=== PATIENT | female | born 1960 | race Caucasian/White ===

== ENCOUNTER 2016-10-05 12:31 | Emergency (ER) | payer SELFPAY ==
[2016-10-05 13:12] LABS: HEMATOCRIT 36.7 % (36.0-47.0); HEMOGLOBIN 12.2 g/dL (12.0-15.5); HGB HCT DIFFERENCE -0.1; MEAN CORPUSCULAR HEMOGLOBIN 29.3 pg (27.0-33.4); MEAN CORPUSCULAR HGB CONC 33.4 g/dL (32.0-36.0); MEAN CORPUSCULAR VOLUME 88 fl (80-97); RED BLOOD COUNT 4.18 10^6/uL (3.72-5.28); RED CELL DISTRIBUTION WIDTH 13.9 % (11.5-14.0); WHITE BLOOD COUNT 16.3 10^3/uL (4.0-10.5)
[2016-10-05] MEDS ORDERED: IPRATROPIUM/ALBUTEROL 0.5-2.5 MG/3 ML AMPUL NEB ONE ×3 (13:21)
[2016-10-05 13:31] LABS: BASOPHILS % (MANUAL) 1 % (0-2); EOSINOPHILS % (MANUAL) 5 % (0-6); LYMPHOCYTES % (MANUAL) 57 % (13-45); TOTAL CELLS COUNTED 100
--- NOTE | 2016-10-05 13:31 | ER Document Report ---
ED General - General Chief Complaint: Shortness Of Breath Stated Complaint: SHORTNESS OF BREATH Mode of Arrival: Ambulatory Information source: Patient Notes: 56-year-old female history of COPD who is stop smoking presents with complaints of wheezing. Patient is to mild shortness of breath, denies any productivity or fevers. Patient denies any other concerns, notes she's had multiple similar episodes in the past requiring duo nebs here and then discharge. Patient states she feels well otherwise TRAVEL OUTSIDE OF THE [place] IN LAST 30 DAYS: No - HPI Onset: Other - 3 days Onset/Duration: Persistent Quality of pain: No pain Severity: Mild Pain Level: Denies Associated symptoms: Nonproductive cough, Shortness of breath Exacerbated by: Denies Relieved by: Denies Similar symptoms previously: Yes Recently seen / treated by doctor: Yes - Related Data Allergies/Adverse Reactions: codeine Allergy (Verified 10/05/16 13:13) methylprednisolone sodium succinate [From Solu-Medrol] Adverse Reaction ( Verified 04/05/14 06:23) Increase Glucose Past Medical History - Social History Smoking Status: Former Smoker Cigarette use (# per day): No Chew tobacco use (# tins/day): No Smoking Education Provided: No Frequency of alcohol use: None Drug Abuse: None Family History: Reviewed & Not Pertinent - Past Medical History Cardiac Medical History: Reports: Hx Hypercholesterolemia, Hx Hypertension Denies: Hx Coronary Artery Disease, Hx Heart Attack Pulmonary Medical History: Reports: Hx Asthma, Hx Bronchitis, Hx COPD, Hx Pneumonia Neurological Medical History: Denies: Hx Cerebrovascular Accident, Hx Seizures Endocrine Medical History: Reports: Hx Diabetes Mellitus Type 2 Renal/ Medical History: Denies: Hx Peritoneal Dialysis Musculoskeltal Medical History: Reports Hx Arthritis Past Surgical History: Reports: Hx Appendectomy, Hx Hysterectomy, Hx Orthopedic Surgery - left knee repair. Denies: Hx Pacemaker - Immunizations Hx Diphtheria, Pertussis, Tetanus Vaccination: Yes Hx Pneumococcal Vaccination: 06/23/03 Review of Systems - Review of Systems Notes: REVIEW OF SYSTEMS: CONSTITUTIONAL : Denies fever, chills, or sweats. Denies recent illness. EENT: Denies eye, ear, throat, or mouth pain or symptoms. Denies nasal or sinus congestion or discharge. Denies throat, tongue, or mouth swelling or difficulty swallowing. CARDIOVASCULAR: Denies chest pain. Denies palpitations or racing or irregular heart beat. Denies ankle edema. RESPIRATORY: Admits to shortness of breath wheezing GASTROINTESTINAL: Denies abdominal pain or distention. Denies nausea, vomiting , or diarrhea. Denies blood in vomitus, stools, or per rectum. Denies black, tarry stools. Denies constipation. GENITOURINARY: Denies difficulty urinating, painful urination, burning, frequency, blood in urine, or discharge. FEMALE GENITOURINARY: Denies vaginal bleeding, heavy or abnormal periods, irregular periods. Denies vaginal discharge or odor. MUSCULOSKELETAL: Denies back or neck pain or stiffness. Denies joint pain or swelling. SKIN: Denies rash, lesions or sores. HEMATOLOGIC : Denies easy bruising or bleeding. LYMPHATIC: Denies swollen, enlarged glands. NEUROLOGICAL: Denies confusion or altered mental status. Denies passing out or loss of consciousness. Denies dizziness or lightheadedness. Denies headache. Denies weakness or paralysis or loss of use of either side. Denies problems with gait or speech. Denies sensory loss, numbness, or tingling. Denies seizures. PSYCHIATRIC: Denies anxiety or stress. Denies depression, suicidal ideation, or homicidal ideation. ALL OTHER SYSTEMS REVIEWED AND NEGATIVE. Dictation was performed using [employer] voice recognition software PHYSICAL EXAMINATION: GENERAL: Well-appearing, well-nourished and in no acute distress. HEAD: Atraumatic, normocephalic. EYES: Pupils equal round and reactive to light, extraocular movements intact, conjunctiva are normal. ENT: Nares patent, oropharynx clear without exudates. Moist mucous membranes. NECK: Normal range of motion, supple without lymphadenopathy LUNGS: Clear inspiratory breath sounds bilateral expiratory breath sounds noted HEART: Regular rate and rhythm without murmurs ABDOMEN: Soft, nontender, nondistended abdomen. No guarding, no rebound. No masses appreciated. Female : deferred Musculoskeletal: Normal range of motion, no pitting or edema. No cyanosis. NEUROLOGICAL: Cranial nerves grossly intact. Normal speech, normal gait. Normal sensory, motor exams PSYCH: Normal mood, normal affect. SKIN: Warm, Dry, normal turgor, no rashes or lesions noted. Physical Exam - Vital signs Vitals: Temp Pulse Resp BP Pulse Ox 98 F 95 20 118/69 97 10/05/16 12:39 10/05/16 12:39 10/05/16 12:39 10/05/16 12:39 10/05/16 12:39 Course - Re-evaluation Re-evalutation: 10/05/16 13:31 Patient is having mild COPD exacerbation otherwise well-appearing in no distress , I will give her some breathing treatments here x-rays pending otherwise patient looks well satting 100% on room air 10/05/16 14:34 Lab work notes mild white count elevation of the bed the patients in no distress looks well sounds much better after breathing treatments I will discharge her home with steroids and inhaler After performing a Medical Screening Examination, I estimate there is LOW risk for ACUTE CORONARY SYNDROME, RESPIRATORY FAILURE, SEPSIS OR MENINGITIS, thus I consider the discharge disposition reasonable. I have reevaluated this patient multiple times and no significant life threatening changes are noted. The patient and I have discussed the diagnosis and risks, and we agree with discharging home with close follow-up. We also discussed returning to the Emergency Department immediately if new or worsening symptoms occur. We have discussed the symptoms which are most concerning (e.g., changing or worsening pain, trouble swallowing or breathing, neck stiffness, fever) that necessitate immediate return. - Vital Signs Vital signs: Temp Pulse Resp BP Pulse Ox 98 F 95 24 H 118/69 96 10/05/16 12:39 10/05/16 12:39 10/05/16 13:05 10/05/16 12:39 10/05/16 13:05 - Laboratory Result Diagrams: 10/05/16 13:00 10/05/16 13:00 Laboratory results interpreted by me: 10/05/16 10/05/16 13:00 13:00 WBC 16.3 H Seg Neuts % (Manual) 32 L Lymphocytes % (Manual) 57 H Monocytes % (Manual) 2 L Abs Lymphs (Manual) 9.8 H Absolute Eos (Manual) 0.8 H Sodium 145.3 H Est GFR (Non-Af Amer) 58 L Glucose 170 H AST 43 H Creatine Kinase 1176 H - Diagnostic Test Radiology reviewed: Image reviewed, Reports reviewed Discharge - Discharge Clinical Impression: COPD exacerbation Condition: Stable Disposition: HOME, SELF-CARE Instructions: Chronic Obstructive Lung Disease ([facility]) Prescriptions: Albuterol Sulfate [Proair HFA Inhalation Aerosol 8.5 gm MDI] 2 puff IH Q4H PRN # 1 mdi PRN Reason: Prednisone [Deltasone 20 mg Tablet] 3 tab PO DAILY 5 Days Referrals: ELAINE JACK MD [Primary Care Provider] - Follow up tomorrow
[2016-10-05 13:32] LABS: RBC MORPHOLOGY COMMENT NORMO-CYTIC/CHROMIC
[2016-10-05 13:44] LABS: ALANINE AMINOTRANSFERASE 40 U/L (9-52); ALBUMIN 4.7 g/dL (3.5-5.0); ALKALINE PHOSPHATASE 66 U/L (38-126); ANION GAP 17 (5-19); ASPARTATE AMINO TRANSFERASE 43 U/L (14-36); BILIRUBIN,DIRECT 0.2 mg/dL (0.0-0.4); BILIRUBIN,TOTAL 0.4 mg/dL (0.2-1.3); BLOOD UREA NITROGEN 18 mg/dL (7-20); CALCIUM 9.7 mg/dL (8.4-10.2); CARBON DIOXIDE 24 mmol/L (22-30); CHLORIDE 104 mmol/L (98-107); CREATINE KINASE 1176 U/L (30-135); CREATININE RESULT 0.98 mg/dL (0.52-1.25); GLUCOSE 170 mg/dL (75-110); POTASSIUM 4.7 mmol/L (3.6-5.0); SODIUM 145.3 mmol/L (137-145); TOTAL PROTEIN 7.6 g/dL (6.3-8.2)
[2016-10-05 13:55] LABS: CREATINE KINASE MB 3.69 ng/mL (<4.55)
[2016-10-05 13:56] LABS: TROPONIN I < 0.012 ng/mL
[2016-10-05 14:52] VITALS: BP 99/81
[2016-10-05 15:09] LABS: APPEARANCE,URINE SLIGHTLY-CLOUDY; BILIRUBIN,URINE NEGATIVE (NEGATIVE); GLUCOSE, URINE NEGATIVE (NEGATIVE); KETONES,URINE NEGATIVE (NEGATIVE); LEUKOCYTE ESTERASE,URINE LARGE (NEGATIVE); NITRITE,URINE NEGATIVE (NEGATIVE); PROTEIN,URINE NEGATIVE (NEGATIVE); URINE SPECIFIC GRAVITY 1.025; UROBILINOGEN,URINE NEGATIVE mg/dL (<2.0)
--- NOTE | 2016-10-05 18:06 | EKG REPORT ---
SEVERITY:- BORDERLINE ECG - SINUS RHYTHM BORDERLINE LEFT AXIS DEVIATION BORDERLINE T ABNORMALITIES, ANTERIOR LEADS : Confirmed by: Zeb Esquivel MD 05-Oct-2016 18:05:36
== END 2016-10-05 14:52 | disposition home or self-care (01) ==
LOC: ER 12:31
DX: J44.1 Chronic obstructive pulmonary disease with (acute) exacerbation (principal); R06.02 Shortness of breath; R06.2 Wheezing; Z87.891 Personal history of nicotine dependence
CPT/HCPCS: 36415; 71010; 80053; 81001; 82550; 82553; 83880; 84484; 85025; 93005; 93010; 94640; 99285; J7620

== ENCOUNTER → 2017-02-28 | Outpatient (CLI) | payer BC ==
--- NOTE | 2017-02-28 16:43 | WOMENS IMAGING REPORT ---
EXAM DESCRIPTION: BILAT SCREENING MAMMO W/CAD COMPLETED DATE/TIME: 02/28/2017 8:28 am REASON FOR STUDY: SCREENING MAMMO Z12.31 ENCNTR SCREEN MAMMOGRAM FOR MALIGNANT NEOPLASM OF ANGEL COMPARISON: Multiple since 2007 TECHNIQUE: Standard craniocaudal and mediolateral oblique views of each breast recorded using digita l acquisition. LIMITATIONS: None. FINDINGS: Findings present which are benign by mammographic criteria. No suspicious masses, calcifi cations or architectural distortion. Pertinent benign findings: Multiple bilateral breast parenchymal benign calcifications. Benign left breast nodule 6 o'clock position. Read with the assistance of CAD. .[facility] - R2 Cenova Version 1.3 .[facility] Imaging - R2 Cenova Version 1.3 .[facility] - R2 Cenova Version 2.4 .[facility] - R2 Cenova Version 2.4 .[facility] - R2 Clinical Data Abstractor Version 9.2 Benign mammographic findings may include one or more of the following: Smooth masses, popcorn/rim/co arse calcifications, asymmetries, post-procedure changes, and lesions with long-standing stability. IMPRESSION: BENIGN MAMMOGRAPHIC FINDINGS. BIRADS 2 BREAST DENSITY: b. There are scattered areas of fibroglandular density. BIRAD: 2 BENIGN FINDING(S) RECOMMENDATION: ROUTINE SCREENING Please consider bilateral screening tomosynthesis in February 2018 COMMENT: The patient has been notified of the results by letter per SA requirements. Additional no tification policies are in place for contacting patient with suspicious or incomplete findings. Quality ID #[id number]: The [employer] recommends an annual screening mammogram for women aged 40 years or over. This facility utilizes a reminder system to ensure that all patients receive reminder letters, and/or direct phone calls for appointments. This includes reminders for routine scr eening mammograms, diagnostic mammograms, or other Breast Imaging Interventions when appropriate. Th is patient will be placed in the appropriate reminder system. The [employer] (ACR) has developed recommendations for screening MRI of the breast s in certain patient populations, to be used in conjunction with mammography. Breast MRI surveillanc e may be appropriate for women with more than 20% lifetime risk of developing breast cancer as deter mined by genetic testing, significant family history of the disease, or history of mantle radiation f or Hodgkins Disease. ACR Practice Guidelines 2008. TECHNICAL DOCUMENTATION: FINDING NUMBER: (1) ASSESSMENT: (1) JOB ID: [id number] [employer]- All Rights Reserved
== END ==
LOC: WI 08:01
PROVIDERS: ATTEND Family Medicine
DX: Z12.31 Encounter for screening mammogram for malignant neoplasm of breast (principal)
CPT/HCPCS: 77067; G0202

== ENCOUNTER 2017-05-23 16:17 | Emergency (ER) | payer BC ==
--- NOTE | 2017-05-23 18:48 | RADIOLOGY REPORT (SQ) ---
EXAM DESCRIPTION: CHEST PA/LAT COMPLETED DATE/TIME: 05/23/2017 6:39 pm REASON FOR STUDY: resp COMPARISON: 04/18/2017 EXAM PARAMETERS: NUMBER OF VIEWS: two views TECHNIQUE: Digital Frontal and Lateral radiographic views of the chest acquired. RADIATION DOSE: NA LIMITATIONS: none FINDINGS: LUNGS AND PLEURA: No opacities, masses or pneumothorax. No pleural effusion. MEDIASTINUM AND HILAR STRUCTURES: No masses or contour abnormalities. HEART AND VASCULAR STRUCTURES: Heart normal size. No evidence for failure. BONES: No acute findings. HARDWARE: None in the chest. OTHER: No other significant finding. IMPRESSION: NO SIGNIFICANT RADIOGRAPHIC FINDING IN THE CHEST. TECHNICAL DOCUMENTATION: JOB ID: [id number] [employer]- All Rights Reserved
[2017-05-23] MEDS ORDERED: IPRATROPIUM/ALBUTEROL 0.5-2.5 MG/3 ML AMPUL NEB ONE ×3 (19:34→20:53)
[2017-05-23] MEDS ORDERED: PREDNISONE 20 MG TABLET PO ONE (19:34)
[2017-05-23] MEDS ORDERED: DOXYCYCLINE HYCLATE 100 MG TABLET PO ONE (19:35)
--- NOTE | 2017-05-23 19:37 | ER Document Report ---
ED Respiratory Problem - General Chief Complaint: Cough Stated Complaint: DIFFICULTY BREATHING, FEVER, COUGH Time Seen by Provider: 05/23/17 19:10 Notes: Patient is a 56 year old female that comes to the ED for chief complaint of 2-3 days of worsening cough along with feeling chills and feverish. She did not take her temperature. Past medical history of COPD, former smoking, does not have home oxygen, uses home inhalers. She has been admitted for COPD but not intubated, she does have a history of pneumonia. She denies congestion, runny nose, sinus symptoms. She denies any other complaints. Other PMH includes diabetes, uses insulin. TRAVEL OUTSIDE OF THE [place] IN LAST 30 DAYS: No - Related Data Allergies/Adverse Reactions: codeine Allergy (Verified 05/23/17 16:18) methylprednisolone sodium succinate [From Solu-Medrol] Adverse Reaction ( Verified 05/23/17 16:18) Increase Glucose Past Medical History - General Information source: Patient - Social History Smoking Status: Never Smoker Chew tobacco use (# tins/day): No Frequency of alcohol use: None Drug Abuse: None Lives with: Family Family History: Reviewed & Not Pertinent Patient has suicidal ideation: No Patient has homicidal ideation: No - Past Medical History Cardiac Medical History: Reports: Hx Hypercholesterolemia, Hx Hypertension Denies: Hx Coronary Artery Disease, Hx Heart Attack Pulmonary Medical History: Reports: Hx Asthma, Hx Bronchitis, Hx COPD, Hx Pneumonia Neurological Medical History: Denies: Hx Cerebrovascular Accident, Hx Seizures Endocrine Medical History: Reports: Hx Diabetes Mellitus Type 2 Renal/ Medical History: Denies: Hx Peritoneal Dialysis Musculoskeltal Medical History: Reports Hx Arthritis Past Surgical History: Reports: Hx Appendectomy, Hx Hysterectomy, Hx Orthopedic Surgery - left knee repair. Denies: Hx Pacemaker - Immunizations Hx Diphtheria, Pertussis, Tetanus Vaccination: Yes Hx Pneumococcal Vaccination: 06/23/03 Review of Systems - Review of Systems Constitutional: See HPI EENT: No symptoms reported Cardiovascular: No symptoms reported Respiratory: See HPI Gastrointestinal: No symptoms reported Genitourinary: No symptoms reported Female Genitourinary: No symptoms reported Musculoskeletal: No symptoms reported Skin: No symptoms reported Hematologic/Lymphatic: No symptoms reported Neurological/Psychological: No symptoms reported Physical Exam - Vital signs Vitals: Temp Pulse Resp BP Pulse Ox 99.2 F 105 H 20 150/84 H 96 05/23/17 16:21 05/23/17 16:21 05/23/17 16:21 05/23/17 16:21 05/23/17 16:21 Interpretation: Normal - General General appearance: Appears well, Alert In distress: None - HEENT Head: Normocephalic, Atraumatic Eyes: Normal Pupils: PERRL - Respiratory Respiratory status: No respiratory distress. No: Respiratory distress, Labored , Tachypnea Chest status: Nontender Breath sounds: Decreased air movement, Nonproductive cough - occassional, Wheezing - Scattered expiratory wheezes Chest palpation: Normal - Cardiovascular Rhythm: Regular Heart sounds: Normal auscultation Murmur: No - Abdominal Inspection: Normal Distension: No distension Bowel sounds: Normal Tenderness: Nontender. No: Tender, Guarding Organomegaly: No organomegaly - Back Back: Normal, Nontender - Extremities General upper extremity: Normal inspection, Nontender, Normal color, Normal ROM , Normal temperature General lower extremity: Normal inspection, Nontender, Normal color, Normal ROM , Normal temperature, Normal weight bearing. No: Delia's sign - Neurological Neuro grossly intact: Yes Cognition: Normal Orientation: AAOx4 Kit Coma Scale Eye Opening: Spontaneous Kit Coma Scale Verbal: Oriented Kit Coma Scale Motor: Obeys Commands [place] Coma Scale Total: 15 Speech: Normal Motor strength normal: LUE, RUE, LLE, RLE Sensory: Normal - Psychological Associated symptoms: Normal affect, Normal mood - Skin Skin Temperature: Warm Skin Moisture: Dry Skin Color: Normal Course - Re-evaluation Re-evalutation: On initial examination patient has decreased breath sounds with expiratory wheezes throughout. Patient however does not have any tachypnea, she is actually very well-appearing. Patient states that she has been much worse many times previously in the past. She states she is trying to "nip it in the butt" . Chest x-ray is unremarkable. After multiple DuoNeb treatments patient's wheezing resolved. She is mildly tachycardic at about 100 on my reexamination. She states that she feels great now and she wants to go home. She declines additional workup including laboratory workup. Discussed recommendation of treating with prednisone, patient states that she wants minimal dosing because of elevated blood sugars, she states she does check her blood glucose and can adjust her insulin for it. She will be given a prednisone taper because of requests. Will treat with doxycycline because of history of pneumonia. Patient to follow-up closely with primary care. Patient agrees to return if she worsens in any way. - Vital Signs Vital signs: Temp Pulse Resp BP Pulse Ox 98.6 F 114 H 26 H 143/89 H 94 05/23/17 21:25 05/23/17 21:25 05/23/17 21:25 05/23/17 21:25 05/23/17 21:25 Discharge - Discharge Clinical Impression: COPD exacerbation, Cough, Shortness of breath Condition: Stable Disposition: HOME, SELF-CARE Additional Instructions: Symptoms and examination are most consistent with COPD exacerbation. Take medications as prescribed, take your albuterol inhaler as needed, follow-up closely with primary care. Return if you worsen in any way including difficulty breathing. Prescriptions: Doxycycline Hyclate 100 mg PO BID #14 capsule Prednisone [Deltasone 10 mg Tablet] 10 mg PO ASDIR PRN #21 tablet PRN Reason: Forms: Return to Work Referrals: MATTHIEU MEYERS DO [Primary Care Provider] - Follow up as needed
[2017-05-23 21:26] VITALS: BP 143/89
[2017-05-23] MEDS ORDERED: ALBUTEROL SULFATE HFA (90 MCG/PUFF) 8 GM MDI (1 MDI/ER DISP) IH ONE (21:48)
== END 2017-05-23 22:10 | disposition home or self-care (01) ==
LOC: ER 16:17
DX: J44.1 Chronic obstructive pulmonary disease with (acute) exacerbation (principal); R05 Cough; R06.02 Shortness of breath; I10 Essential (primary) hypertension; R68.83 Chills (without fever); E11.9 Type 2 diabetes mellitus without complications; Z79.4 Long term (current) use of insulin; Z79.899 Other long term (current) drug therapy; Z87.01 Personal history of pneumonia (recurrent); Z88.5 Allergy status to narcotic agent
CPT/HCPCS: 94640 ×2; 99283; 71020; J7512; J3490; J7620

== ENCOUNTER 2017-09-14 00:28 | Emergency (ER) | payer BC ==
[2017-09-14] MEDS ORDERED: IPRATROPIUM/ALBUTEROL 0.5-2.5 MG/3 ML AMPUL NEB ONE (00:40)
[2017-09-14] MEDS ORDERED: ALBUTEROL SULFATE 0.083% NEB 2.5 MG/3 ML AMPUL NEB ONE (00:40)
[2017-09-14] MEDS ORDERED: PREDNISONE 20 MG TABLET PO ONE (00:40)
--- NOTE | 2017-09-14 00:43 | ER Document Report ---
ED General - General Stated Complaint: SHORTNESS OF BREATH Time Seen by Provider: 09/14/17 00:40 Notes: Patient is a 57-year-old female with past medical history of COPD and hypertension who presents with 1 hour of progressively worsening shortness of breath. Patient states that she had a relatively rapid onset of progressively worsening wheezing and tightness. She states she tried her home nebulizer with minimal improvement of her symptoms. She states that she had recently been treated with a five-day course of a rapid taper of prednisone and that this had been secondary to increasing need for inhaler. However she states that today she felt much sicker than she had in the recent past. She denies any cough, sputum production, fever, chest pain, vomiting, or any additional symptoms that are worrisome to her. She has not recently seen a primary care doctor. She does not take any daily control medicines for her COPD. She states that she has had significant improvement of her symptoms after receiving nebulizer treatments by EMS. She has not noted that anything worsened or triggered her symptoms. TRAVEL OUTSIDE OF THE [place] IN LAST 30 DAYS: No - Related Data Allergies/Adverse Reactions: codeine Allergy (Verified 05/23/17 16:18) methylprednisolone sodium succinate [From Solu-Medrol] Adverse Reaction ( Verified 05/23/17 16:18) Increase Glucose Past Medical History - General Information source: Patient - Social History Smoking Status: Former Smoker Frequency of alcohol use: None Drug Abuse: None Lives with: Spouse/Significant other Family History: Reviewed & Not Pertinent - Past Medical History Cardiac Medical History: Reports: Hx Hypercholesterolemia, Hx Hypertension Denies: Hx Coronary Artery Disease, Hx Heart Attack Pulmonary Medical History: Reports: Hx Asthma, Hx Bronchitis, Hx COPD, Hx Pneumonia Neurological Medical History: Denies: Hx Cerebrovascular Accident, Hx Seizures Endocrine Medical History: Reports: Hx Diabetes Mellitus Type 2 Renal/ Medical History: Denies: Hx Peritoneal Dialysis Musculoskeltal Medical History: Reports Hx Arthritis Past Surgical History: Reports: Hx Appendectomy, Hx Hysterectomy, Hx Orthopedic Surgery - left knee repair. Denies: Hx Pacemaker - Immunizations Hx Diphtheria, Pertussis, Tetanus Vaccination: Yes Hx Pneumococcal Vaccination: 06/23/03 Review of Systems - Review of Systems Notes: Constitutional: Negative for fever. HENT: Negative for sore throat. Eyes: Negative for visual changes. Cardiovascular: Negative for chest pain. Respiratory: Positive for shortness of breath. Gastrointestinal: Negative for abdominal pain, vomiting or diarrhea. Genitourinary: Negative for dysuria. Musculoskeletal: Negative for back pain. Skin: Negative for rash. Neurological: Negative for headaches, weakness or numbness. 10 point ROS negative except as marked above and in HPI. Physical Exam - Vital signs Vitals: Pulse Ox 95 09/14/17 00:34 Interpretation: Tachycardic Notes: PHYSICAL EXAMINATION: GENERAL: Well-appearing, well-nourished and in no acute distress. HEAD: Atraumatic, normocephalic. EYES: Pupils equal round and reactive to light, extraocular movements intact, sclera anicteric, conjunctiva are normal. ENT: nares patent, oropharynx clear without exudates. Moist mucous membranes. NECK: Normal range of motion, supple without lymphadenopathy LUNGS: Mildly diminished air movement in all lung mcnamara. Scant end expiratory wheezing throughout. HEART: Regular tachycardia without murmurs ABDOMEN: Soft, nontender, normoactive bowel sounds. No guarding, no rebound. No masses appreciated. EXTREMITIES: Normal range of motion, no pitting or edema. No cyanosis. NEUROLOGICAL: No focal neurological deficits. Moves all extremities spontaneously and on command. PSYCH: Normal mood, normal affect. SKIN: Warm, Dry, normal turgor, no rashes or lesions noted. Course - Re-evaluation Re-evalutation: 09/14/17 00:41 Patient presents with a mild exacerbation of their baseline COPD. Mild wheezing at time of presentation but vitals do not show significant hypoxemia or tachypnea. No retractions. Patient did clinically improve after receiving nebulizers here in the emergency department. Chest x-ray without evidence of an acute pneumonia. Patient refused laboratory assessments. Patient able to ambulate without any respiratory distress. Based on patient's overall reassuring assessment, I believe they are stable for outpatient management with steroids and oral antibiotics. Patient has nebulizers at home. I do not suspect an acute alternative pathology at this time based on history and exam including acute pulmonary embolus, ACS, pneumothorax, or aortic dissection. At this time will discharge with return precautions and follow-up recommendations. Verbal discharge instructions given a the bedside and opportunity for questions given. Medication warnings reviewed. Patient is in agreement with this plan and has verbalized understanding of return precautions and the need for primary care follow-up in the next 24-72 hours. 09/14/17 01:22 - Vital Signs Vital signs: Temp Pulse Resp BP Pulse Ox 95 09/14/17 00:34 - Diagnostic Test Radiology reviewed: Image reviewed, Reports reviewed Radiology results interpreted by me: 09/14/17 01:22 Chest x-ray: No acute infiltrate or pneumothorax - EKG Interpretation by Me Additional EKG results interpreted by me: 09/14/17 01:23 Sinus tachycardia. Rate 109. No ST elevations or depressions. QTC 453. Discharge - Discharge Clinical Impression: COPD exacerbation Condition: Good Disposition: HOME, SELF-CARE Additional Instructions: You were seen for a COPD exacerbation. Your symptoms improved with treatment here in the emergency department. However, it is very important that you return to the emergency department immediately if you began to have worsening difficulty breathing that does not respond to your normal home nebulizers. You are also being sent home on a five-day course of steroids that you should start taking tomorrow. Please also follow closely with your primary care physician. You should eturn to emergency department if you develop fever greater than 101, persistent cough, persistent vomiting, pass out, or any other symptoms that are concerning to you. Prescriptions: Prednisone [Deltasone 20 mg Tablet] 3 tab PO DAILY 5 Days tablet Referrals: MATTHIEU MEYERS DO [Primary Care Provider] - Follow up in 3-5 days
--- NOTE | 2017-09-14 02:07 | RADIOLOGY REPORT (SQ) ---
EXAM DESCRIPTION: CHEST SINGLE VIEW CLINICAL HISTORY: sob COMPARISON: 05/23/2017 FINDINGS: Single frontal view of the chest. Tortuosity of the thoracic aorta. Cardiomegaly. Leads overlie the chest. Low lung volumes. No consolidation, pneumothorax, or pleural effusion. No displaced rib fractures identified. Upper abdominal soft tissues are unremarkable. IMPRESSION: 1. No acute pulmonary process identified. Cardiomegaly.
[2017-09-14 02:21] VITALS: BP 128/65
--- NOTE | 2017-09-14 16:20 | EKG REPORT ---
SEVERITY:- OTHERWISE NORMAL ECG - SINUS TACHYCARDIA : Confirmed by: Jordyn Watson 14-Sep-2017 16:19:52
== END 2017-09-14 02:41 | disposition home or self-care (01) ==
LOC: ER 00:28
DX: J44.1 Chronic obstructive pulmonary disease with (acute) exacerbation (principal); R00.0 Tachycardia, unspecified; I10 Essential (primary) hypertension; E11.9 Type 2 diabetes mellitus without complications; Z87.891 Personal history of nicotine dependence; Z88.5 Allergy status to narcotic agent; Z87.01 Personal history of pneumonia (recurrent)
CPT/HCPCS: 93005; 94640 ×2; 99285; 71045; 93010; J7512; J7620

== ENCOUNTER 2018-02-11 15:45 | Emergency (ER) | payer BC ==
--- NOTE | 2018-02-11 18:09 | ER Document Report ---
ED GI/ - General Chief Complaint: Nausea/Vomiting Stated Complaint: NAUSEA/VOMITING Time Seen by Provider: 02/11/18 18:09 Mode of Arrival: Ambulatory Information source: Patient TRAVEL OUTSIDE OF THE [place] IN LAST 30 DAYS: No - HPI Patient complains to provider of: Vomiting. No: Abdominal pain Onset: Other - 3 days. Timing/Duration: Gradual Quality of pain: No pain Severity at maximum: Moderate Severity in ED: Mild Pain Level: 2 Location: No: Chest pain Vaginal bleeding (Compared to normal period): None Associated symptoms: Nausea, Vomiting Exacerbated by: Denies Relieved by: Denies Similar symptoms previously: No Recently seen / treated by doctor: No - Related Data Allergies/Adverse Reactions: codeine Allergy (Verified 02/11/18 15:45) methylprednisolone sodium succinate [From Solu-Medrol] Adverse Reaction ( Verified 02/11/18 15:45) Increase Glucose Past Medical History - Social History Smoking Status: Former Smoker Chew tobacco use (# tins/day): No Frequency of alcohol use: None Drug Abuse: None Family History: Reviewed & Not Pertinent Patient has suicidal ideation: No Patient has homicidal ideation: No - Past Medical History Cardiac Medical History: Reports: Hx Hypercholesterolemia, Hx Hypertension Denies: Hx Coronary Artery Disease, Hx Heart Attack Pulmonary Medical History: Reports: Hx Asthma, Hx Bronchitis, Hx COPD, Hx Pneumonia Neurological Medical History: Denies: Hx Cerebrovascular Accident, Hx Seizures Endocrine Medical History: Reports: Hx Diabetes Mellitus Type 2 Renal/ Medical History: Denies: Hx Peritoneal Dialysis Musculoskeletal Medical History: Reports Hx Arthritis Past Surgical History: Reports: Hx Appendectomy, Hx Hysterectomy, Hx Orthopedic Surgery - left knee repair. Denies: Hx Pacemaker - Immunizations Hx Diphtheria, Pertussis, Tetanus Vaccination: Yes Hx Pneumococcal Vaccination: 06/23/03 Review of Systems - Review of Systems Constitutional: denies: Chills, Fever EENT: No symptoms reported Cardiovascular: No symptoms reported Respiratory: denies: Cough, Short of breath Gastrointestinal: Nausea, Vomiting, Poor appetite. denies: Abdominal pain, Diarrhea, Constipation Genitourinary: No symptoms reported Female Genitourinary: No symptoms reported Musculoskeletal: No symptoms reported Skin: No symptoms reported Hematologic/Lymphatic: No symptoms reported Neurological/Psychological: No symptoms reported -: Yes All other systems reviewed and negative Physical Exam - Vital signs Vitals: Temp Pulse Resp BP Pulse Ox 98.3 F 92 18 130/75 H 96 02/11/18 15:47 02/11/18 15:47 02/11/18 15:47 02/11/18 15:47 02/11/18 15:47 - General General appearance: Appears well, Alert In distress: None - HEENT Head: Normocephalic, Atraumatic Eyes: Normal Pupils: PERRL - Respiratory Respiratory status: No respiratory distress Chest status: Nontender Breath sounds: Normal Chest palpation: Normal - Cardiovascular Rhythm: Regular Heart sounds: Normal auscultation Murmur: No - Abdominal Inspection: Normal Distension: No distension Bowel sounds: Normal Tenderness: Nontender Organomegaly: No organomegaly - Back Back: Normal, Nontender - Extremities General upper extremity: Normal inspection, Nontender, Normal color, Normal ROM , Normal temperature General lower extremity: Normal inspection, Nontender, Normal color, Normal ROM , Normal temperature, Normal weight bearing. No: Delia's sign - Neurological Neuro grossly intact: Yes Cognition: Normal Orientation: AAOx4 [place] Coma Scale Eye Opening: Spontaneous [place] Coma Scale Verbal: Oriented [place] Coma Scale Motor: Obeys Commands [place] Coma Scale Total: 15 Speech: Normal Motor strength normal: LUE, RUE, LLE, RLE Sensory: Normal - Psychological Associated symptoms: Normal affect, Normal mood - Skin Skin Temperature: Warm Skin Moisture: Dry Skin Color: Normal Course - Re-evaluation Re-evalutation: 02/12/18 02:06 Patient tolerated p.o. in the ED and will be discharged home. She was advised to follow-up with her primary doctor tomorrow morning. - Vital Signs Vital signs: Temp Pulse Resp BP Pulse Ox 98.3 F 92 19 134/72 H 97 02/11/18 15:47 02/11/18 15:47 02/12/18 01:01 02/12/18 01:01 02/12/18 01:01 - Laboratory Result Diagrams: 02/11/18 17:24 02/11/18 17:24 Laboratory results interpreted by me: 02/11/18 02/11/18 02/11/18 17:24 17:24 18:41 WBC 17.1 H Hct 35.5 L Seg Neuts % (Manual) 33 L Lymphocytes % (Manual) 55 H Abs Lymphs (Manual) 9.7 H Absolute Eos (Manual) 0.7 H Chloride 95 L BUN 21 H Est GFR (Non-Af Amer) 51 L AST 49 H Creatine Kinase 1436 H Urine Ketones TRACE H Ur Leukocyte Esterase SMALL H - Diagnostic Test Radiology reviewed: Image reviewed, Reports reviewed - Transfer of Care Notes: 02/12/18 02:07 Nausea and vomiting Discharge - Discharge Clinical Impression: Nausea & vomiting Qualifiers: Vomiting type: unspecified Vomiting Intractability: non-intractable Qualified Code(s): R11.2 - Nausea with vomiting, unspecified Leukocytosis Qualifiers: Leukocytosis type: unspecified Qualified Code(s): D72.829 - Elevated white blood cell count, unspecified Disposition: HOME, SELF-CARE Instructions: Vomiting ([facility]) Additional Instructions: Please follow-up with her primary doctor tomorrow morning. Return to the emergency room if her condition worsens. Prescriptions: Levofloxacin [Levaquin 750 mg Tablet] 750 mg PO DAILY #5 tablet Ondansetron [Zofran Odt 4 mg Tablet] 1 tab PO Q4H PRN #20 tab.rapdis PRN Reason: For Nausea/Vomiting Forms: Return to Work Referrals: MATTHIEU MEYERS DO [Primary Care Provider] - Follow up as needed
[2018-02-11] MEDS ORDERED: NORMAL SALINE 1000 ML 1,000 ML IV ONE (18:13)
[2018-02-11] MEDS ORDERED: METOCLOPRAMIDE HCL INJ/PF 10 MG/2 ML SDV IV ONE (18:16)
[2018-02-11 18:47] LABS: HEMATOCRIT 35.5 % (36.0-47.0); HEMOGLOBIN 12.1 g/dL (12.0-15.5); MEAN CORPUSCULAR HEMOGLOBIN 29.1 pg (27.0-33.4); MEAN CORPUSCULAR HGB CONC 34.2 g/dL (32.0-36.0); MEAN CORPUSCULAR VOLUME 85 fl (80-97); PLATELET COUNT 233 10^3/uL (150-450); RED BLOOD COUNT 4.18 10^6/uL (3.72-5.28); RED CELL DISTRIBUTION WIDTH 13.8 % (11.5-14.0); WHITE BLOOD COUNT 17.1 10^3/uL (4.0-10.5)
[2018-02-11 19:03] LABS: APPEARANCE,URINE CLEAR; BILIRUBIN,URINE NEGATIVE (NEGATIVE); COLOR,URINE YELLOW; GLUCOSE, URINE NEGATIVE (NEGATIVE); KETONES,URINE TRACE mg/dL (NEGATIVE); LEUKOCYTE ESTERASE,URINE SMALL (NEGATIVE); NITRITE,URINE NEGATIVE (NEGATIVE); PROTEIN,URINE NEGATIVE (NEGATIVE); URINE SPECIFIC GRAVITY 1.013; UROBILINOGEN,URINE NEGATIVE mg/dL (<2.0)
[2018-02-11 19:05] LABS: ABSOLUTE LYMPHOCYTES# (MANUAL) 9.7 10^3/uL (0.5-4.7); ABSOLUTE MONOCYTES # (MANUAL) 0.9 10^3/uL (0.1-1.4); ABSOLUTE NEUTROPHILS# (MANUAL) 5.6 10^3/uL (1.7-8.2); ALANINE AMINOTRANSFERASE 38 U/L (9-52); ALBUMIN 4.4 g/dL (3.5-5.0); ALKALINE PHOSPHATASE 55 U/L (38-126); ANION GAP 18 (5-19); ASPARTATE AMINO TRANSFERASE 49 U/L (14-36); BASOPHILS % (MANUAL) 1 % (0-2); BILIRUBIN,DIRECT 0.3 mg/dL (0.0-0.4); BILIRUBIN,TOTAL 0.4 mg/dL (0.2-1.3); BLOOD UREA NITROGEN 21 mg/dL (7-20); CALCIUM 9.1 mg/dL (8.4-10.2); CARBON DIOXIDE 26 mmol/L (22-30); CHLORIDE 95 mmol/L (98-107); CREATINE KINASE 1436 U/L (30-135); EOSINOPHILS % (MANUAL) 4 % (0-6); GLUCOSE 91 mg/dL (75-110); LIPASE 93.7 U/L (23-300); LYMPHOCYTES % (MANUAL) 55 % (13-45); MONOCYTES % (MANUAL) 5 % (3-13); PLATELET COMMENT ADEQUATE; SEGMENTED NEUTROPHILS % (MAN) 33 % (42-78); SODIUM 138.8 mmol/L (137-145); TOTAL CELLS COUNTED 100; TOTAL PROTEIN 7.1 g/dL (6.3-8.2); TOXIC GRANULATION SLIGHT
[2018-02-11 19:09] LABS: VENOUS BLOOD BASE EXCESS 2.6 mmol/L; VENOUS BLOOD PCO2 52.6 mmHg (35-63); VENOUS BLOOD PH 7.36 (7.30-7.42)
[2018-02-11 19:20] LABS: CREATINE KINASE MB 3.97 ng/mL (<4.55)
[2018-02-11 19:27] LABS: TROPONIN I < 0.012 ng/mL
--- NOTE | 2018-02-11 19:30 | RADIOLOGY REPORT (SQ) ---
EXAM DESCRIPTION: CHEST SINGLE VIEW COMPLETED DATE/TIME: 02/11/2018 7:15 pm REASON FOR STUDY: cough COMPARISON: 09/14/2017 EXAM PARAMETERS: NUMBER OF VIEWS: One view. TECHNIQUE: Single frontal radiographic view of the chest acquired. RADIATION DOSE: NA LIMITATIONS: None. FINDINGS: LUNGS AND PLEURA: No opacities, masses or pneumothorax. No pleural effusion. MEDIASTINUM AND HILAR STRUCTURES: No masses. Contour normal. HEART AND VASCULAR STRUCTURES: Heart normal in size. Normal vasculature. BONES: No acute findings. HARDWARE: None in the chest. OTHER: No other significant finding. IMPRESSION: NO ACUTE RADIOGRAPHIC FINDING IN THE CHEST. TECHNICAL DOCUMENTATION: JOB ID: [id number] [employer]- All Rights Reserved Reading location - IP/workstation name: [email or web address]
--- NOTE | 2018-02-11 19:31 | RADIOLOGY REPORT (SQ) ---
EXAM DESCRIPTION: FOOT LEFT 2 VIEWS COMPLETED DATE/TIME: 02/11/2018 7:15 pm REASON FOR STUDY: pain COMPARISON: None. NUMBER OF VIEWS: Two views. TECHNIQUE: AP and lateral radiographic images acquired of the left foot. LIMITATIONS: None. FINDINGS: MINERALIZATION: Normal. BONES: Nondisplaced fracture of the base of the 5th proximal phalanx. Large plantar calcaneal spur. JOINTS: No effusions. SOFT TISSUES: No soft tissue swelling. No foreign body. OTHER: No other significant finding. IMPRESSION: Nondisplaced fracture of the 5th proximal phalanx. Calcaneal spur. TECHNICAL DOCUMENTATION: JOB ID: [id number] [employer]- All Rights Reserved Reading location - IP/workstation name: [email or web address]
--- NOTE | 2018-02-11 22:14 | EKG REPORT ---
SEVERITY:- NORMAL ECG - SINUS RHYTHM VPC : Confirmed by: Jordyn Watson 11-Feb-2018 22:14:14
[2018-02-11] MEDS ORDERED: LEVOFLOXACIN 750 MG/D5W RTU 750 MG/150 ML RTUPB IV ONE (22:27)
--- NOTE | 2018-02-11 22:36 | RADIOLOGY REPORT (SQ) ---
EXAM DESCRIPTION: CT ABD/PELVIS NO ORAL OR IV COMPLETED DATE/TIME: 02/11/2018 10:11 pm REASON FOR STUDY: Nausea and Vomiting COMPARISON: None. TECHNIQUE: CT scan of the abdomen and pelvis performed without intravenous or oral contrast. Images reviewed with lung, soft tissue, and bone windows. Reconstructed coronal and sagittal MPR images revi ewed. All images stored on PACS. All CT scanners at this facility use dose modulation, iterative reconstruction, and/or weight based d osing when appropriate to reduce radiation dose to as low as reasonably achievable (ALARA). [facility]: Dose Right [facility]: CareDose [facility]: Dose Right [facility]: Teradose 4D [facility]: [employer] RADIATION DOSE: CT Rad equipment meets quality standard of care and radiation dose reduction techniq ues were employed. CTDIvol: 16.9 mGy. DLP: 901 mGy-cm.mGy. LIMITATIONS: None. FINDINGS: LOWER CHEST: No significant findings. No nodules or infiltrates. NON-CONTRASTED LIVER, SPLEEN, ADRENALS: Evaluation limited by lack of IV contrast. No identified sign ificant masses. PANCREAS: No masses. No peripancreatic inflammatory changes. GALLBLADDER: No identified stones by CT criteria. No inflammatory changes to suggest cholecystitis. RIGHT KIDNEY AND URETER: No suspicious masses. Assessment limited by lack of IV contrast. No signif icant calcifications. No hydronephrosis or hydroureter. LEFT KIDNEY AND URETER: No suspicious masses. Assessment limited by lack of IV contrast. No signifi cant calcifications. No hydronephrosis or hydroureter. AORTA AND RETROPERITONEUM: No aneurysm. No retroperitoneal masses or adenopathy. BOWEL AND PERITONEAL CAVITY: No obvious masses or inflammatory changes. No free fluid. APPENDIX: Surgically absent. PELVIS, BLADDER, AND ABDOMINAL WALL:Uterus is absent. BONES: Dysplastic right hip. No acute osseous findings. OTHER: No other significant finding. IMPRESSION: 1. No acute findings in the abdomen or pelvis. 2. Right hip dysplasia. COMMENT: Quality ID # [id number]: Final reports with documentation of one or more dose reduction techniques (e.g., Automated exposure control, adjustment of the mA and/or kV according to patient size, use of iterative reconstruction technique) TECHNICAL DOCUMENTATION: JOB ID: [id number] [employer]- All Rights Reserved Reading location - IP/workstation name: [email or web address]
[2018-02-12 01:22] VITALS: BP 134/72
== END 2018-02-12 01:11 | disposition home or self-care (01) ==
LOC: ER 15:45
DX: R11.2 Nausea with vomiting, unspecified (principal); D72.829 Elevated white blood cell count, unspecified; R63.0 Anorexia; E78.00 Pure hypercholesterolemia, unspecified; I10 Essential (primary) hypertension; E11.9 Type 2 diabetes mellitus without complications; Z88.6 Allergy status to analgesic agent; Z87.891 Personal history of nicotine dependence; Z90.710 Acquired absence of both cervix and uterus
CPT/HCPCS: 93005; 99284; 96361; 96375; 96365; 36415; 82553; 82550; 83690; 85025; 80053; 81001; 84484; 82803; 71045; 73620; 74176; 93010; J2765; J7030; J1956

== ENCOUNTER → 2018-10-07 | Outpatient (CLI) | payer OTHER ==
[2018-10-07 10:20] LABS: HEMATOCRIT 36.7 % (36.0-47.0); HEMOGLOBIN 12.5 g/dL (12.0-15.5); MEAN CORPUSCULAR HEMOGLOBIN 29.5 pg (27.0-33.4); MEAN CORPUSCULAR HGB CONC 34.2 g/dL (32.0-36.0); MEAN CORPUSCULAR VOLUME 86 fl (80-97); PLATELET COUNT 208 10^3/uL (150-450); RED BLOOD COUNT 4.25 10^6/uL (3.72-5.28); RED CELL DISTRIBUTION WIDTH 14.1 % (11.5-14.0); WHITE BLOOD COUNT 18.4 10^3/uL (4.0-10.5)
[2018-10-07 10:33] LABS: ALANINE AMINOTRANSFERASE 37 U/L (9-52); ALKALINE PHOSPHATASE 71 U/L (38-126); ANION GAP 10 (5-19); ASPARTATE AMINO TRANSFERASE 26 U/L (14-36); BILIRUBIN,DIRECT 0.3 mg/dL (0.0-0.4); BILIRUBIN,TOTAL 0.3 mg/dL (0.2-1.3); BLOOD UREA NITROGEN 9 mg/dL (7-20); CALCIUM 9.5 mg/dL (8.4-10.2); CARBON DIOXIDE 27 mmol/L (22-30); CHLORIDE 101 mmol/L (98-107); CHOLESTEROL 189.19 mg/dL (0-200); GLUCOSE 195 mg/dL (75-110); SODIUM 137.6 mmol/L (137-145); TOTAL PROTEIN 6.6 g/dL (6.3-8.2); TRIGLYCERIDES 123 mg/dL (<150)
[2018-10-07 10:44] LABS: DIRECT LDL 140 mg/dL (<100)
[2018-10-07 11:06] LABS: ABSOLUTE LYMPHOCYTES# (MANUAL) 7.7 10^3/uL (0.5-4.7); ABSOLUTE MONOCYTES # (MANUAL) 0.4 10^3/uL (0.1-1.4); ABSOLUTE NEUTROPHILS# (MANUAL) 9.6 10^3/uL (1.7-8.2); BASOPHILS % (MANUAL) 0 % (0-2); EOSINOPHILS % (MANUAL) 4 % (0-6); LYMPHOCYTES % (MANUAL) 42 % (13-45); MONOCYTES % (MANUAL) 2 % (3-13); SEGMENTED NEUTROPHILS % (MAN) 52 % (42-78); SMUDGE CELLS PRESENT; TOTAL CELLS COUNTED 100
[2018-10-07 11:09] LABS: PLATELET COMMENT ADEQUATE
== END ==
LOC: OD 09:27
DX: Z00.00 Encounter for general adult medical examination without abnormal findings (principal)
CPT/HCPCS: 36415; 80053; 80061; 83036; 84443; 85025

== ENCOUNTER 2018-10-23 15:44 | Inpatient (IN) | payer SELFPAY ==
[2018-10-23] MEDS ORDERED: IPRATROPIUM/ALBUTEROL 0.5-2.5 MG/3 ML AMPUL NEB ONE ×2 (16:34→20:53)
[2018-10-23] MEDS ORDERED: METHYLPREDNISOLONE INJ 125 MG/2 ML SDV IV ONE (16:34)
--- NOTE | 2018-10-23 16:37 | ER Document Report ---
ED Medical Screen (RME) - General Chief Complaint: Breathing Difficulty Stated Complaint: DIFFICULTY BREATHING Time Seen by Provider: 10/23/18 16:27 [facility]: [facility] [Primary [facility] Provider] - Follow up as needed Mode of Arrival: Medic Information source: Patient TRAVEL OUTSIDE OF THE [place] IN LAST 30 DAYS: No - HPI Patient complains to provider of: SOB Notes: 10/23/18 16:35 Patient here with complaints of shortness of breath. Patient has a history of COPD. She is a non-smoker. Former smoker. States that she started feeling short of breath and gave her self a dose of her inhaler. She try to give herself a nebulizer treatment and started feeling more shortness of breath. EMS arrived and gave her 2 DuoNeb's. She refused steroids at that time. States she is feeling somewhat better at this time but still feels short of breath. No chest pain. No fever. No recent long trips or surgeries, leg pain or leg swelling, cancer, hormone use, history of DVT or PE. Exam Increased work of breathing, nontoxic-appearing. Tachypnea, tachycardia, expiratory expiratory wheezing throughout. Plan CBC, CMP, troponin, EKG, chest x-ray, DuoNeb, Solu-Medrol, O2 as needed. An initial examination was made on the patient as part of the triage process, and it was determined a more comprehensive evaluation was necessary. Initial labs were ordered and patient was transferred to another provider in the ED who assumed care and finished evaluation and plan. - Related Data Allergies/Adverse Reactions: codeine Allergy (Verified 02/11/18 15:45) methylprednisolone sodium succinate [From Solu-Medrol] Adverse Reaction (Verified 02/11/18 15:45) Increase Glucose Past Medical History - Social History Frequency of alcohol use: None Drug Abuse: None - Past Medical History Cardiac Medical History: Reports: Hx Hypercholesterolemia, Hx Hypertension Denies: Hx Coronary Artery Disease, Hx Heart Attack Pulmonary Medical History: Reports: Hx Asthma, Hx Bronchitis, Hx COPD, Hx Pneumonia Neurological Medical History: Denies: Hx Cerebrovascular Accident, Hx Seizures Endocrine Medical History: Reports: Hx Diabetes Mellitus Type 2 Renal/ Medical History: Denies: Hx Peritoneal Dialysis Musculoskeltal Medical History: Reports Hx Arthritis Past Surgical History: Reports: Hx Appendectomy, Hx Hysterectomy, Hx Orthopedic Surgery - left knee repair/right carpal tunnel. Denies: Hx Pacemaker - Immunizations Hx Diphtheria, Pertussis, Tetanus Vaccination: Yes History of Influenza Vaccine for 03/2017 - 08/2017 Season: No Physical Exam - Vital signs Vitals: Temp Pulse Resp BP Pulse Ox 98.3 F 124 H 24 H 137/88 H 90 L 10/23/18 16:02 10/23/18 16:02 10/23/18 16:02 10/23/18 16:02 10/23/18 16:02 Course - Vital Signs Vital signs: Temp Pulse Resp BP Pulse Ox 98.3 F 124 H 24 H 137/88 H 90 L 10/23/18 16:02 10/23/18 16:02 10/23/18 16:02 10/23/18 16:02 10/23/18 16:02 Doctor's Discharge - Discharge Referrals: [facility] [Primary Care Provider] - Follow up as needed
--- NOTE | 2018-10-23 16:58 | RADIOLOGY REPORT (SQ) ---
EXAM DESCRIPTION: CHEST 2 VIEWS COMPLETED DATE/TIME: 10/23/2018 4:44 pm REASON FOR STUDY: SOB, WHEEZING COMPARISON: 05/23/2017 two-view chest EXAM PARAMETERS: NUMBER OF VIEWS: two views TECHNIQUE: Digital Frontal and Lateral radiographic views of the chest acquired. RADIATION DOSE: NA LIMITATIONS: none FINDINGS: LUNGS AND PLEURA: No opacities, masses or pneumothorax. No pleural effusion. MEDIASTINUM AND HILAR STRUCTURES: No masses or contour abnormalities. HEART AND VASCULAR STRUCTURES: Heart normal size. No evidence for failure. BONES: No acute findings. HARDWARE: None in the chest. OTHER: No other significant finding. IMPRESSION: NO ACUTE RADIOGRAPHIC FINDING IN THE CHEST. TECHNICAL DOCUMENTATION: JOB ID: [id number] [employer]- All Rights Reserved Reading location - IP/workstation name: [email or web address]
[2018-10-23 17:26] LABS: ABSOLUTE EOSINOPHILS # (AUTO) 0.3 10^3/uL (0.0-0.6); ABSOLUTE MONOCYTES (AUTO) 0.4 10^3/uL (0.1-1.4); ABSOLUTE NEUT (AUTO) 8.6 10^3/uL (1.7-8.2); BASOPHILS % (AUTO) 0.3 % (0-2); EOSINOPHILS % (AUTO) 1.9 % (0-6); HEMATOCRIT 37.3 % (36.0-47.0); HEMOGLOBIN 12.4 g/dL (12.0-15.5); LYMPHOCYTES % (AUTO) 45.9 % (13-45); MEAN CORPUSCULAR HEMOGLOBIN 28.5 pg (27.0-33.4); MEAN CORPUSCULAR HGB CONC 33.1 g/dL (32.0-36.0); MEAN CORPUSCULAR VOLUME 86 fl (80-97); MONOCYTES % (AUTO) 2.4 % (3-13); PLATELET COUNT 207 10^3/uL (150-450); RED BLOOD COUNT 4.33 10^6/uL (3.72-5.28); RED CELL DISTRIBUTION WIDTH 13.5 % (11.5-14.0); SEGMENTED NEUTROPHILS % (AUTO) 49.5 % (42-78); TOTAL CELLS COUNTED % (AUTO) 100 %; WHITE BLOOD COUNT 17.4 10^3/uL (4.0-10.5)
[2018-10-23 17:45] LABS: ALANINE AMINOTRANSFERASE 54 U/L (9-52); ALBUMIN 4.1 g/dL (3.5-5.0); ALKALINE PHOSPHATASE 83 U/L (38-126); ANION GAP 17 (5-19); ASPARTATE AMINO TRANSFERASE 32 U/L (14-36); BILIRUBIN,DIRECT 0.2 mg/dL (0.0-0.4); BILIRUBIN,TOTAL 0.4 mg/dL (0.2-1.3); BLOOD UREA NITROGEN 13 mg/dL (7-20); CARBON DIOXIDE 25 mmol/L (22-30); CHLORIDE 97 mmol/L (98-107); GLUCOSE 313 mg/dL (75-110); POTASSIUM 4.1 mmol/L (3.6-5.0); SODIUM 138.7 mmol/L (137-145); TOTAL PROTEIN 6.7 g/dL (6.3-8.2)
[2018-10-23] MEDS ORDERED: ALBUTEROL SULFATE 0.083% NEB 2.5 MG/3 ML AMPUL NEB ONE ×2 (18:57→19:19)
[2018-10-23 19:12] LABS: CREATINE KINASE 83 U/L (30-135)
[2018-10-23 19:45] LABS: APPEARANCE,URINE CLOUDY; BILIRUBIN,URINE NEGATIVE (NEGATIVE); COLOR,URINE YELLOW; GLUCOSE, URINE 150 mg/dL (NEGATIVE); KETONES,URINE NEGATIVE (NEGATIVE); LEUKOCYTE ESTERASE,URINE LARGE (NEGATIVE); NITRITE,URINE NEGATIVE (NEGATIVE); PROTEIN,URINE NEGATIVE (NEGATIVE); URINE SPECIFIC GRAVITY 1.016; UROBILINOGEN,URINE NEGATIVE mg/dL (<2.0)
--- NOTE | 2018-10-23 20:47 | ER Document Report ---
Entered by GALA MILTON SCRIBE 10/23/18 [id number] Acting as scribe for:SUDHIR SOTO MD ED General - General Chief Complaint: Breathing Difficulty Stated Complaint: DIFFICULTY BREATHING Time Seen by Provider: 10/23/18 16:27 Primary Care Provider: [facility] [Primary Care Provider] - Follow up as needed Mode of Arrival: Ambulatory Information source: Patient Notes: Patient is a 58 year old female presenting to the emergency department complaining of difficultly breathing onset today. Patient states she began to have a cough and congestion approximately 1 week ago. She describes her cough as productive with intermittent white sputum. She states this afternoon after lunch, she began to have difficulty breathing. She states she used her rescue inhaler and a nebulizer treatment with no relief. Patient states she was last on prednisone 2 months ago but was instructed to stop use by PCP, Dr. Flores, due to the medication elevating her WBC and blood sugar. TRAVEL OUTSIDE OF THE [place] IN LAST 30 DAYS: No - Related Data Allergies/Adverse Reactions: codeine Allergy (Verified 02/11/18 15:45) methylprednisolone sodium succinate [From Solu-Medrol] Adverse Reaction (Verified 02/11/18 15:45) Increase Glucose Past Medical History - General Information source: Patient - Social History Smoking Status: Former Smoker Cigarette use (# per day): No Chew tobacco use (# tins/day): No Smoking Education Provided: No Frequency of alcohol use: None Drug Abuse: None Lives with: Family Family History: Reviewed & Not Pertinent Patient has suicidal ideation: No Patient has homicidal ideation: No - Past Medical History Cardiac Medical History: Reports: Hx Hypercholesterolemia, Hx Hypertension Pulmonary Medical History: Reports: Hx Asthma, Hx Bronchitis, Hx COPD, Hx Pneumonia Endocrine Medical History: Reports: Hx Diabetes Mellitus Type 2 Musculoskeletal Medical History: Reports Hx Arthritis Past Surgical History: Reports: Hx Appendectomy, Hx Hysterectomy, Hx Orthopedic Surgery - left knee repair/right carpal tunnel - Immunizations Hx Diphtheria, Pertussis, Tetanus Vaccination: Yes Hx Pneumococcal Vaccination: 06/23/03 Review of Systems - Review of Systems Constitutional: No symptoms reported EENT: No symptoms reported Cardiovascular: No symptoms reported Respiratory: See HPI, Short of breath Gastrointestinal: No symptoms reported Genitourinary: No symptoms reported Female Genitourinary: No symptoms reported Musculoskeletal: No symptoms reported Skin: No symptoms reported Hematologic/Lymphatic: No symptoms reported Neurological/Psychological: No symptoms reported -: Yes All other systems reviewed and negative Physical Exam - Vital signs Vitals: Temp Pulse Resp BP Pulse Ox 98.3 F 124 H 24 H 137/88 H 90 L 10/23/18 16:02 10/23/18 16:02 10/23/18 16:02 10/23/18 16:02 10/23/18 16:02 - Notes Notes: GENERAL: Alert, interacts well. No acute distress. HEAD: Normocephalic, atraumatic. EYES: Pupils equal, round, and reactive to light. Extraocular movements intact. ENT: Oral mucosa moist, tongue midline. NECK: Full range of motion. Supple. Trachea midline. LUNGS: Tachypneic. Diffuse inspiratory and expiratory wheezes. Prolonged expiratory phase. HEART: Regular rate and rhythm. No murmurs, gallops, or rubs. ABDOMEN: Soft, obese, non-tender. Non-distended. Bowel sounds present in all 4 quadrants. No guarding, rigidity, or rebound. EXTREMITIES: Moves all 4 extremities spontaneously. No edema. No cyanosis. NEUROLOGICAL: Alert and oriented x3. Normal speech. PSYCH: Normal affect, normal mood. SKIN: Warm, dry, normal turgor. No rashes or lesions noted. Course - Re-evaluation Re-evalutation: 10/23/18 22:21 The patient refused the magnesium sulfate timing it caused her face to flush. This time the patient is still a little tachypneic, dyspneic, with diffuse wheezes and prolonged expiratory phase. - Vital Signs Vital signs: Temp Pulse Resp BP Pulse Ox 97.8 F 124 H 27 H 150/110 H 92 10/23/18 22:31 10/23/18 16:02 10/23/18 21:01 10/23/18 21:01 10/23/18 21:01 - Laboratory Result Diagrams: 10/23/18 17:10 10/23/18 17:10 Laboratory results interpreted by me: 10/23/18 10/23/18 10/23/18 17:10 17:10 19:24 WBC 17.4 H Lymphocytes % 45.9 H Monocytes % 2.4 L Absolute Neutrophils 8.6 H Absolute Lymphocytes 8.0 H Chloride 97 L Glucose 313 H ALT 54 H Urine Glucose (UA) 150 H Ur Leukocyte Esterase LARGE H - Diagnostic Test Radiology reviewed: Image reviewed, Reports reviewed - Chest x-ray does not show any acute process - EKG Interpretation by Me EKG shows normal: Sinus rhythm, [place], Intervals, QRS Complexes. abnormal: ST-T Waves - Order line anterior T abnormalities Rate: Tachycardia - 103 [place]/QRS: Left axis deviation Discharge - Discharge Clinical Impression: Acute exacerbation of moderate persistent extrinsic asthma Urinary tract infection Qualifiers: Urinary tract infection type: site unspecified Hematuria presence: without hematuria Qualified Code(s): N39.0 - Urinary tract infection, site not specified Hypertension Qualifiers: Hypertension type: essential hypertension Qualified Code(s): I10 - Essential (primary) hypertension Diabetes Qualifiers: Diabetes mellitus type: type 2 Diabetes mellitus ocean transportation intermediary insulin use: unspecified ocean transportation intermediary insulin use status Diabetes mellitus complication status: without complication Qualified Code(s): E11.9 - Type 2 diabetes mellitus without complications Condition: Good Disposition: ADMITTED INPATIENT Admitting Provider: Betsy (Hospitalist) Unit Admitted: Medical Floor Referrals: [facility] [Primary Care Provider] - Follow up as needed Scribe Attestation: 10/23/18 20:56 I personally performed the services described in the documentation, reviewed and edited the documentation which was dictated to the scribe in my presence, and it accurately records my words and actions. I personally performed the services described in the documentation, reviewed and edited the documentation which was dictated to the scribe in my presence, and it accurately records my words and actions.
[2018-10-23] MEDS: MAGNESIUM SULFATE/D5W 1 GM/100 ML RTUPB IV SCH ×2 (21:19→21:33)
[2018-10-23] MEDS ORDERED: LEVOFLOXACIN 750 MG/D5W RTU 750 MG/150 ML RTUPB IV ONE (22:28)
[2018-10-23] MEDS: IBUPROFEN 600 MG TABLET PO PRN (23:43)
[2018-10-24] MEDS ORDERED: MAG HYDROX/AL HYDROX/SIMETH SUSP 30 ML UDCUP PO PRN (00:47)
[2018-10-24] MEDS ORDERED: MAGNESIUM HYDROXIDE SUSP 30 ML UDCUP PO PRN (00:47)
[2018-10-24] MEDS ORDERED: TEMAZEPAM 15 MG CAPSULE PO PRN (00:47)
[2018-10-24] MEDS ORDERED: NALBUPHINE HCL INJ 10 MG/1 ML AMPULE IV PRN (00:53)
[2018-10-24] MEDS ORDERED: ACETAMINOPHEN 325 MG TABLET PO PRN (00:53)
[2018-10-24] MEDS ORDERED: HYDRALAZINE HCL INJ/PF 20 MG/1 ML SDV IV PRN (00:53)
[2018-10-24] MEDS ORDERED: DEXTROSE 40% GEL 15 GM TUBE PO PRN ×2 (00:56)
[2018-10-24] MEDS ORDERED: DEXTROSE 50%-WATER 25 GM/50 ML DISP.SYRIN IV PRN ×2 (00:56)
[2018-10-24] MEDS ORDERED: GLUCAGON,HUMAN RECOMB 1 MG INJ IM PRN (00:56)
--- NOTE | 2018-10-24 01:24 | PDOC H&P ---
History of Present Illness Admission Date/PCP: 10/23/18 22:59 [facility] Patient complains of: Dyspnea History of Present Illness: EDWARDO PATRICK is a 58 year old female who presented to the emergency room with a one-week history of dyspnea. She admits mild dyspnea with an associated cough productive of moderate amounts of thick tenacious purulent yellow sputum beginning 1 week ago but suddenly worsening today after an outing to eat lunch with her daughter she suddenly developed markedly increased dyspnea and could not "catch her breath" she tried using her home nebulizer as well as handheld inhalers with no relief and subsequently presented to the emergency room with severe dyspnea. She admits having prior similar episodes with other asthma/COPD attacks. She has not identified any aggravating or ameliorating factors for her sudden worsening dyspnea today. In the emergency room she was found to be significantly dyspneic though not hypoxic. She had significant work of breathing but did not wish to use a BiPAP or CPAP mask unless absolutely necessary. She was treated with multiple nebulizers and intravenous steroids and did show some mild improvement but continued to be significantly dyspneic and unable to tolerate any activity due to her dyspnea. She was subsequently admitted to hospital for further evaluation and treatment. Past Medical History Cardiac Medical History: Reports: Hyperlipidema, Hypertension Denies: Coronary Artery Disease, Myocardial Infarction Pulmonary Medical History: Reports: Asthma, Bronchitis, Chronic Obstructive Pulmonary Disease (COPD), Pneumonia EENT Medical History: Reports: Eyes - Prescription eyeglasses Denies: Cataracts, Ears - Hearing aids Neurological Medical History: Denies: Hemorrhagic CVA, Ischemic CVA, Seizures Endocrine Medical History: Reports: Diabetes Mellitus Type 2, Obesity Denies: Diabetes Mellitus Type 1, Hyperthyroidism, Hypothyroidism Renal/ Medical History: Denies: Chronic Kidney Disease, Nephrolithiasis Malignancy Medical History: Reports: None GI Medical History: Denies: Cirrhosis, Hepatitis Musculoskeltal Medical History: Reports: Arthritis Denies: Gout Skin Medical History: Denies: Eczema, Psoriasis Psychiatric Medical History: Reports: Tobacco Dependency Denies: Alcohol Dependency, Substance Abuse Traumatic Medical History: Reports: None Hematology: Denies: Anemia, Bleeding Tendencies Infectious Medical History: Reports: None Past Surgical History Past Surgical History: Reports: Appendectomy, Hysterectomy, Orthopedic Surgery - left knee repair/right carpal tunnel Social History Information Source: Patient Lives with: Family Smoking Status: Former Smoker Frequency of Alcohol Use: None Hx Recreational Drug Use: No Drugs: None Hx Prescription Drug Abuse: No - Advance Directive Resuscitation Status: Full Code Surrogate healthcare decision maker:: Her daughter Kathy Family History Family History: CAD, COPD - Asthma and COPD, DM, Hyperlipidemia, Hypertension, Other - CHF. denies: Malignancy Parental Family History Reviewed: Yes Children Family History Reviewed: No Sibling(s) Family History Reviewed.: Yes Medication/Allergy Home Medications: Albuterol Sulfate [Proair HFA] 1 puff IH Q4HP PRN 04/18/17 Insulin Glargine,Hum.rec.anlog [Basaglar Kwikpen U-100] 36 units SQ QHS 04/18/17 Lisinopril/Hydrochlorothiazide [Zestoretic 20-25 mg Tablet] 1 tab PO DAILY 04/18/17 Metformin HCl [Glucophage 500 mg Tablet] 500 mg PO BID 04/18/17 Simvastatin [Zocor 20 mg Tablet] 20 mg PO QHS 04/18/17 Azithromycin 250 mg PO DAILY 4 Days #4 tablet 04/20/17 Prednisone [Deltasone 20 mg Tablet] 10 mg PO BID 7 Days #14 tablet 04/20/17 Doxycycline Hyclate 100 mg PO BID #14 capsule 05/23/17 Prednisone [Deltasone 10 mg Tablet] 10 mg PO ASDIR PRN #21 tablet 05/23/17 Prednisone [Deltasone 20 mg Tablet] 3 tab PO DAILY 5 Days tablet 09/14/17 Levofloxacin [Levaquin 750 mg Tablet] 750 mg PO DAILY #5 tablet 02/12/18 Ondansetron [Zofran Odt 4 mg Tablet] 1 tab PO Q4H PRN #20 tab.rapdis 02/12/18 Allergies/Adverse Reactions: codeine Allergy (Verified 02/11/18 15:45) methylprednisolone sodium succinate [From Solu-Medrol] Adverse Reaction (Verified 02/11/18 15:45) Increase Glucose Review of Systems Constitutional: ABSENT: chills, fever(s) Eyes: ABSENT: visual disturbances, other - Eye pain Ears: ABSENT: hearing changes, other - Ear pain Nose, Mouth, and Throat: ABSENT: mouth pain, sore throat Cardiovascular: PRESENT: as per HPI, dyspnea on exertion. ABSENT: chest pain, edema, orthropnea, palpitations Respiratory: PRESENT: as per HPI, cough, dyspnea, sputum Gastrointestinal: ABSENT: abdominal pain, constipation, diarrhea, nausea, vomiting Genitourinary: ABSENT: dysuria, hematuria Musculoskeletal: ABSENT: back pain, joint swelling, muscle weakness Integumentary: ABSENT: pruritus, rash Neurological: ABSENT: confusion, convulsions, focal weakness, memory loss, syncope Psychiatric: ABSENT: anxiety, depression Endocrine: ABSENT: cold intolerance, heat intolerance Hematologic/Lymphatic: ABSENT: easy bleeding, easy bruising Physical Exam Vital Signs: Temp Pulse Resp BP Pulse Ox 97.4 F 117 H 20 146/59 H 97 10/24/18 00:50 10/24/18 00:50 10/24/18 00:50 10/24/18 00:50 10/24/18 00:50 Intake & Output 10/22/18 10/23/18 10/24/18 23:59 23:59 23:59 Intake Total 18 150 Balance 18 150 Weight 98.6 kg 100.4 kg General appearance: PRESENT: cooperative, mild distress - Due to increased work of breathing, obese Head exam: PRESENT: atraumatic, normocephalic Eye exam: ABSENT: conjunctival injection, scleral icterus Ear exam: PRESENT: normal external ear exam. ABSENT: bleeding, drainage Mouth exam: PRESENT: dry mucosa, neck supple Neck exam: ABSENT: thyromegaly, tracheal deviation Respiratory exam: PRESENT: accessory muscle use - Moderate use of accessory muscles of breathing with tripoding, decreased breath sounds - Very poor air movement throughout the chest with diminished breath sounds in all mcnamara, prolonged expiratory phas - Moderate to severely prolonged expiratory phase, retraction - Mild to moderate subcostal subclavicular retractions bilaterally, symmetrical, tachypnea, wheezes - High-pitched end expiratory wheezes consistent with very poor air movement Cardiovascular exam: PRESENT: RRR, tachycardia. ABSENT: clicks, gallop, rubs Pulses: PRESENT: normal radial pulses, normal dorsalis pedis pul Vascular exam: PRESENT: normal capillary refill. ABSENT: pallor GI/Abdominal exam: PRESENT: normal bowel sounds, soft. ABSENT: tenderness Rectal exam: PRESENT: deferred Extremities exam: ABSENT: joint swelling, pedal edema Musculoskeletal exam: ABSENT: deformity, dislocation Neurological exam: PRESENT: alert, oriented to person, oriented to place, oriented to time, oriented to situation, CN II-XII grossly intact. ABSENT: motor sensory deficit Psychiatric exam: PRESENT: appropriate affect, normal mood Skin exam: PRESENT: dry, intact, warm. ABSENT: jaundice, rash, urticaria Results Laboratory Results: 10/23/18 17:10 10/23/18 17:10 10/23/18 10/23/18 10/23/18 17:10 17:10 19:24 WBC 17.4 H RBC 4.33 Hgb 12.4 Hct 37.3 MCV 86 MCH 28.5 MCHC 33.1 RDW 13.5 Plt Count 207 Seg Neutrophils % 49.5 Lymphocytes % 45.9 H Monocytes % 2.4 L Eosinophils % 1.9 Basophils % 0.3 Absolute Neutrophils 8.6 H Absolute Lymphocytes 8.0 H Absolute Monocytes 0.4 Absolute Eosinophils 0.3 Absolute Basophils 0.0 Sodium 138.7 Potassium 4.1 Chloride 97 L Carbon Dioxide 25 Anion Gap 17 BUN 13 Creatinine 0.89 Est GFR ( Amer) > 60 Est GFR (Non-Af Amer) > 60 Glucose 313 H Calcium 9.0 Total Bilirubin 0.4 AST 32 ALT 54 H Alkaline Phosphatase 83 Total Protein 6.7 Albumin 4.1 Urine Color YELLOW Urine Appearance CLOUDY Urine pH 5.0 Ur Specific [place] 1.016 Urine Protein NEGATIVE Urine Glucose (UA) 150 H Urine Ketones NEGATIVE Urine Blood NEGATIVE Urine Nitrite NEGATIVE Ur Leukocyte Esterase LARGE H Urine WBC (Auto) 35 Urine RBC (Auto) 4 10/23/18 10/23/18 17:10 17:10 Creatine Kinase 83 Troponin I 0.031 Impressions: Chest X-Ray 10/23/18 16:34 IMPRESSION: NO ACUTE RADIOGRAPHIC FINDING IN THE CHEST. Assessment and Plan - Diagnosis (1) Acute exacerbation of chronic obstructive pulmonary disease (COPD) Is this a current diagnosis for this admission?: Yes Plan: Patient be treated with an aggressive pulmonary toilet utilizing nebulized Xopenex, Pulmicort and Atrovent. She will be treated with IV Solu-Medrol and she will receive supplemental oxygen if required to maintain an O2 sat greater than 90% but less than 94%. Additionally she is noted to have significant work of breathing and she will have available BiPAP for as needed use utilizing room air with pressures of 12/6. Her O2 sat will be monitored constantly and venous blood gases will be obtained on a daily basis. Additionally she will receive Levaquin 750 mg p.o. daily on empiric basis for a total of 4 doses. Any pain associated with her acute exacerbation of COPD will be treated with Nubain 10 mg IV every 3 hours as needed. (2) Hypertension Qualifiers: Hypertension type: essential hypertension Qualified Code(s): I10 - Essential (primary) hypertension Is this a current diagnosis for this admission?: Yes Plan: Patient will continue with her current antihypertensive regiment. Her medications will be adjusted as necessary for formulary purposes. She will be followed closely throughout her hospital course with frequent vital sign assessments. Appropriate changes will be made only if necessary. Her CBC, metabolic profile and magnesium will be followed daily. She will be on monitored status in IM. (3) Hyperlipidemia Qualifiers: Hyperlipidemia type: unspecified Qualified Code(s): E78.5 - Hyperlipidemia, unspecified Is this a current diagnosis for this admission?: Yes Plan: Patient will have her current statin therapy help as it is been causing her a good deal of muscle pain in her primary care physician had recommended discontinuing it. A lipid profile will be obtained and initiation of Pravachol therapy or other appropriate agent will be initiated if required. (4) Diabetes mellitus type 2 in obese Is this a current diagnosis for this admission?: Yes Plan: Patient will be continued on her current diabetic regiment with a diabetic diet and she will also have AC and at bedtime blood sugars performed with sliding scale insulin to cover hyperglycemic events which may occur due to her steroid therapy. Hemoglobin A1c will be obtained to assess the efficacy of her current therapy. - Time Time Spent with patient: 25-34 minutes Medications reviewed and adjusted accordingly: Yes Anticipated discharge: Home - Inpatient Certification Based on my medical assessment, after consideration of the patient's comorbidities, presenting symptoms, or acuity I expect that the services needed warrant INPATIENT care.: Yes I certify that my determination is in accordance with my understanding of Medicare's requirements for reasonable and necessary INPATIENT services [42 CFR 412.3e].: Yes Medical Necessity: Significant Comorbidiites Make Outpatient Treatment Too Risky, Need Close Monitoring Due to Risk of Patient Decompensation, Need For Continuous Telemetry Monitoring, Need for Nebulizer Therapy and Monitoring of Response, Risk of Complication if Not Cared For in Hospital
[2018-10-24] MEDS ORDERED: INSULIN REG, HUMAN 100 UNIT/ML 3 ML VIAL (PYX) SUBCUT ONE (01:30)
[2018-10-24] MEDS ORDERED: LEVOFLOXACIN 750 MG TABLET PO ONE (01:30)
[2018-10-24] MEDS ORDERED: LEVALBUTEROL HCL NEB 1.25 MG/3 ML AMPUL NEB ONE (01:30)
[2018-10-24] MEDS ORDERED: METHYLPREDNISOLONE INJ 40 MG/1 ML SDV IV ONE (01:30)
[2018-10-24] MEDS: LEVALBUTEROL HCL NEB 0.63 MG/3 ML AMPUL NEB PRN ×2 (02:19→13:29)
[2018-10-24] MEDS ORDERED: RINGERS SOLUTION,LACTATED 1,000 ML IV PRN (03:03)
[2018-10-24] MEDS ORDERED: LORAZEPAM INJ 2 MG/1 ML VIAL IV PRN (04:01)
[2018-10-24] MEDS: HEPARIN SOD (PORCINE) 5,000 UNIT/ML 1 ML SYRINGE SUBCUT SCH ×3 (06:31→21:18)
[2018-10-24 07:04] LABS: VENOUS BLOOD BASE EXCESS -2.7 mmol/L; VENOUS BLOOD HCO3 22.5 mmol/L (20-32); VENOUS BLOOD PCO2 40.7 mmHg (35-63); VENOUS BLOOD PH 7.36 (7.30-7.42)
[2018-10-24] MEDS: BUDESONIDE NEB 0.5 MG/2 ML AMPUL NEB SCH ×2 (07:31→19:51)
[2018-10-24] MEDS: LEVALBUTEROL HCL NEB 1.25 MG/3 ML AMPUL NEB SCH ×2 (07:31→15:31)
[2018-10-24] MEDS: METHYLPREDNISOLONE INJ 40 MG/1 ML SDV IV SCH ×3 (08:46→21:18)
[2018-10-24] MEDS: INSULIN REG, HUMAN 100 UNIT/ML 3 ML VIAL (PYX) SUBCUT SCH ×4 (08:47→21:32)
[2018-10-24] MEDS: HYDROCHLOROTHIAZIDE 12.5 MG TABLET PO SCH (09:59)
[2018-10-24] MEDS: FAMOTIDINE 20 MG TABLET PO SCH ×2 (09:59→21:19)
[2018-10-24] MEDS: DOCUSATE SODIUM 100 MG CAPSULE PO SCH ×2 (10:00→17:03)
[2018-10-24] MEDS: METFORMIN HCL 500 MG TABLET PO SCH ×2 (10:00→17:02)
[2018-10-24] MEDS: LISINOPRIL 10 MG TABLET PO SCH (10:00)
[2018-10-24] MEDS: INSULIN GLARGINE,HUM.REC.ANLOG 1,000 UNIT/10 ML VIAL SUBCUT SCH (10:04)
[2018-10-24] MEDS: IBUPROFEN 600 MG TABLET PO PRN (10:13)
--- NOTE | 2018-10-24 11:13 | EKG REPORT ---
SEVERITY:- BORDERLINE ECG - SINUS TACHYCARDIA BORDERLINE LEFT AXIS DEVIATION BORDERLINE T ABNORMALITIES, ANTERIOR LEADS : Confirmed by: Jordyn Watson 24-Oct-2018 11:12:18
--- NOTE | 2018-10-24 16:51 | PDOC PROGRESS REPORT ---
Subjective Progress Note for:: 10/24/18 Subjective:: No adverse events overnight. No new complaints. Vital signs been stable. Eating and drinking without difficulty. Breathing well at rest but she still gets short of breath when she gets out of bed to go to the bathroom. Reason For Visit: ACUTE EXACERBATION OF COPD Physical Exam Vital Signs: Temp Pulse Resp BP Pulse Ox 97.8 F 117 H 22 H 157/82 H 93 10/24/18 15:30 10/24/18 15:32 10/24/18 15:32 10/24/18 15:30 10/24/18 15:32 Intake & Output 10/23/18 10/24/18 10/25/18 06:59 06:59 06:59 Intake Total 168 1706 Balance 168 1706 Weight 100.2 kg General appearance: PRESENT: no acute distress, cooperative, disheveled, morbidly obese Respiratory exam: PRESENT: prolonged expiratory phas, symmetrical, unlabored, wheezes. ABSENT: accessory muscle use, crackles, rhonchi, tachypnea Cardiovascular exam: PRESENT: RRR, +S1, +S2 Pulses: PRESENT: normal carotid pulses Vascular exam: PRESENT: normal capillary refill GI/Abdominal exam: PRESENT: normal bowel sounds, soft. ABSENT: distended, guarding, rebound, tenderness Extremities exam: ABSENT: clubbing, pedal edema Musculoskeletal exam: PRESENT: normal inspection. ABSENT: deformity Neurological exam: PRESENT: alert, awake, oriented to person, oriented to place, oriented to time, oriented to situation Psychiatric exam: PRESENT: flat affect Skin exam: PRESENT: dry, pallor, warm Results Laboratory Results: 10/23/18 17:10 10/23/18 17:10 10/23/18 10/23/18 10/23/18 17:10 17:10 19:24 WBC 17.4 H RBC 4.33 Hgb 12.4 Hct 37.3 MCV 86 MCH 28.5 MCHC 33.1 RDW 13.5 Plt Count 207 Seg Neutrophils % 49.5 Lymphocytes % 45.9 H Monocytes % 2.4 L Eosinophils % 1.9 Basophils % 0.3 Absolute Neutrophils 8.6 H Absolute Lymphocytes 8.0 H Absolute Monocytes 0.4 Absolute Eosinophils 0.3 Absolute Basophils 0.0 VBG pH VBG pCO2 VBG HCO3 VBG Base Excess Sodium 138.7 Potassium 4.1 Chloride 97 L Carbon Dioxide 25 Anion Gap 17 BUN 13 Creatinine 0.89 Est GFR ( Amer) > 60 Est GFR (Non-Af Amer) > 60 Glucose 313 H Calcium 9.0 Total Bilirubin 0.4 AST 32 ALT 54 H Alkaline Phosphatase 83 Total Protein 6.7 Albumin 4.1 Urine Color YELLOW Urine Appearance CLOUDY Urine pH 5.0 Ur Specific [place] 1.016 Urine Protein NEGATIVE Urine Glucose (UA) 150 H Urine Ketones NEGATIVE Urine Blood NEGATIVE Urine Nitrite NEGATIVE Ur Leukocyte Esterase LARGE H Urine WBC (Auto) 35 Urine RBC (Auto) 4 10/24/18 06:55 WBC RBC Hgb Hct MCV MCH MCHC RDW Plt Count Seg Neutrophils % Lymphocytes % Monocytes % Eosinophils % Basophils % Absolute Neutrophils Absolute Lymphocytes Absolute Monocytes Absolute Eosinophils Absolute Basophils VBG pH 7.36 VBG pCO2 40.7 VBG HCO3 22.5 VBG Base Excess -2.7 Sodium Potassium Chloride Carbon Dioxide Anion Gap BUN Creatinine Est GFR ( Amer) Est GFR (Non-Af Amer) Glucose Calcium Total Bilirubin AST ALT Alkaline Phosphatase Total Protein Albumin Urine Color Urine Appearance Urine pH Ur Specific [place] Urine Protein Urine Glucose (UA) Urine Ketones Urine Blood Urine Nitrite Ur Leukocyte Esterase Urine WBC (Auto) Urine RBC (Auto) 10/23/18 10/23/18 17:10 17:10 Creatine Kinase 83 Troponin I 0.031 Impressions: Chest X-Ray 10/23/18 16:34 IMPRESSION: NO ACUTE RADIOGRAPHIC FINDING IN THE CHEST. Assessment and Plan - Diagnosis (1) Acute exacerbation of chronic obstructive pulmonary disease (COPD) Is this a current diagnosis for this admission?: Yes Plan: Continue with steroids and bronchodilators. She looks okay at rest. Even if she still wheezing, if she can get up and ambulate without getting too short of breath, we might be able to send her home. (2) Diabetes mellitus type 2 in obese Is this a current diagnosis for this admission?: Yes Plan: Made worse currently by the steroids. She is on a sliding scale. - Time Time Spent with patient: 15-24 minutes
[2018-10-24] MEDS ORDERED: METFORMIN HCL 500 MG TABLET PO SCH (18:00)
[2018-10-24] MEDS: LEVOFLOXACIN 750 MG TABLET PO SCH (21:19)
[2018-10-25] MEDS: LEVALBUTEROL HCL NEB 0.63 MG/3 ML AMPUL NEB PRN ×3 (01:07→20:15)
[2018-10-25] MEDS: LEVALBUTEROL HCL NEB 1.25 MG/3 ML AMPUL NEB SCH ×3 (01:09→16:20)
[2018-10-25] MEDS: METHYLPREDNISOLONE INJ 40 MG/1 ML SDV IV SCH ×3 (03:54→14:23)
[2018-10-25] MEDS: HEPARIN SOD (PORCINE) 5,000 UNIT/ML 1 ML SYRINGE SUBCUT SCH ×3 (06:32→22:09)
[2018-10-25 06:34] LABS: VENOUS BLOOD HCO3 26.9 mmol/L (20-32); VENOUS BLOOD PCO2 43.3 mmHg (35-63); VENOUS BLOOD PH 7.41 (7.30-7.42)
[2018-10-25 06:39] LABS: HEMATOCRIT 31.6 % (36.0-47.0); HEMOGLOBIN 10.7 g/dL (12.0-15.5); MEAN CORPUSCULAR HGB CONC 33.9 g/dL (32.0-36.0); MEAN CORPUSCULAR VOLUME 85 fl (80-97); PLATELET COUNT 202 10^3/uL (150-450); RED CELL DISTRIBUTION WIDTH 13.9 % (11.5-14.0)
[2018-10-25 06:54] LABS: ANION GAP 12 (5-19); BLOOD UREA NITROGEN 28 mg/dL (7-20); CALCIUM 9.1 mg/dL (8.4-10.2); CARBON DIOXIDE 25 mmol/L (22-30); CHLORIDE 97 mmol/L (98-107); CHOLESTEROL 186.11 mg/dL (0-200); GLUCOSE 296 mg/dL (75-110); POTASSIUM 5.2 mmol/L (3.6-5.0); SODIUM 134.1 mmol/L (137-145); TRIGLYCERIDES 176 mg/dL (<150)
[2018-10-25 07:01] LABS: VLDL CHOLESTEROL 35.2 mg/dL (10-31)
[2018-10-25 07:04] LABS: DIRECT LDL 137 mg/dL (<100)
[2018-10-25 07:14] LABS: FREE T3 2.69 pg/mL (2.77-5.27); FREE T4 (FREE THYROXINE) 1.26 ng/dL (0.78-2.19)
[2018-10-25 07:24] LABS: ABSOLUTE LYMPHOCYTES# (MANUAL) 8.6 10^3/uL (0.5-4.7); ABSOLUTE NEUTROPHILS# (MANUAL) 22.3 10^3/uL (1.7-8.2); BASOPHILS % (MANUAL) 0 % (0-2); EOSINOPHILS % (MANUAL) 0 % (0-6); LYMPHOCYTES % (MANUAL) 27 % (13-45); MONOCYTES % (MANUAL) 3 % (3-13); PLATELET COMMENT ADEQUATE; RBC MORPHOLOGY COMMENT NORMO-CYTIC/CHROMIC; SEGMENTED NEUTROPHILS % (MAN) 70 % (42-78); TOTAL CELLS COUNTED 100
[2018-10-25 07:25] LABS: WHITE BLOOD COUNT 31.9 10^3/uL (4.0-10.5)
[2018-10-25 07:28] LABS: THYROID STIMULATING HORMONE 0.23 uIU/mL (0.47-4.68)
[2018-10-25] MEDS: BUDESONIDE NEB 0.5 MG/2 ML AMPUL NEB SCH ×2 (08:05→20:15)
[2018-10-25] MEDS: INSULIN REG, HUMAN 100 UNIT/ML 3 ML VIAL (PYX) SUBCUT SCH ×4 (08:09→22:19)
[2018-10-25] MEDS: INSULIN GLARGINE,HUM.REC.ANLOG 1,000 UNIT/10 ML VIAL SUBCUT SCH (11:04)
[2018-10-25] MEDS: LISINOPRIL 10 MG TABLET PO SCH (11:05)
[2018-10-25] MEDS: FAMOTIDINE 20 MG TABLET PO SCH ×2 (11:05→22:09)
[2018-10-25] MEDS: METFORMIN HCL 500 MG TABLET PO SCH ×2 (11:05→18:02)
[2018-10-25] MEDS: HYDROCHLOROTHIAZIDE 12.5 MG TABLET PO SCH (11:05)
[2018-10-25] MEDS: DOCUSATE SODIUM 100 MG CAPSULE PO SCH ×2 (11:06→17:21)
--- NOTE | 2018-10-25 14:57 | PDOC PROGRESS REPORT ---
Subjective Progress Note for:: 10/25/18 Subjective:: No adverse events overnight. She wants to know if she can be switched over to prednisone because she says that Solu-Medrol is making her feel strange. She still has some wheezing. When she gets up to go to the bathroom she gets a little short of breath. Reason For Visit: ACUTE EXACERBATION OF COPD Physical Exam Vital Signs: Temp Pulse Resp BP Pulse Ox 97.8 F 96 20 141/69 H 96 10/25/18 11:06 10/25/18 14:00 10/25/18 13:15 10/25/18 11:06 10/25/18 13:15 Intake & Output 10/24/18 10/25/18 10/26/18 06:59 06:59 06:59 Intake Total 168 1706 711 Output Total 800 Balance 168 1706 -89 Weight 100.2 kg 100.3 kg General appearance: PRESENT: no acute distress, cooperative, disheveled, morbidly obese Respiratory exam: PRESENT: prolonged expiratory phas, symmetrical, unlabored, wheezes. ABSENT: accessory muscle use, crackles, rhonchi, tachypnea Cardiovascular exam: PRESENT: RRR, +S1, +S2 Pulses: PRESENT: normal carotid pulses Vascular exam: PRESENT: normal capillary refill GI/Abdominal exam: PRESENT: normal bowel sounds, soft. ABSENT: distended, guarding, rebound, tenderness Extremities exam: ABSENT: clubbing, pedal edema Musculoskeletal exam: PRESENT: normal inspection. ABSENT: deformity Neurological exam: PRESENT: alert, awake, oriented to person, oriented to place, oriented to time, oriented to situation Psychiatric exam: PRESENT: flat affect Skin exam: PRESENT: dry, pallor, warm Results Laboratory Results: 10/25/18 06:26 10/25/18 06:26 10/25/18 10/25/18 10/25/18 06:26 06:26 06:26 WBC 31.9 H* RBC 3.70 L Hgb 10.7 L Hct 31.6 L MCV 85 MCH 29.0 MCHC 33.9 RDW 13.9 Plt Count 202 Seg Neutrophils % Not Reportable Lymphocytes % Not Reportable Monocytes % Not Reportable Eosinophils % Not Reportable Basophils % Not Reportable Absolute Neutrophils Not Reportable Absolute Lymphocytes Not Reportable Absolute Monocytes Not Reportable Absolute Eosinophils Not Reportable Absolute Basophils Not Reportable VBG pH VBG pCO2 VBG HCO3 VBG Base Excess Sodium 134.1 L Potassium 5.2 H Chloride 97 L Carbon Dioxide 25 Anion Gap 12 BUN 28 H Creatinine 1.00 Est GFR ( Amer) > 60 Est GFR (Non-Af Amer) 57 L Glucose 296 H Calcium 9.1 Magnesium 1.4 L Triglycerides 176 H Cholesterol 186.11 LDL Cholesterol Direct 137 H VLDL Cholesterol 35.2 H HDL Cholesterol 37 L TSH 0.23 L Free T4 1.26 Free T3 pg/mL 2.69 L 10/25/18 06:26 WBC RBC Hgb Hct MCV MCH MCHC RDW Plt Count Seg Neutrophils % Lymphocytes % Monocytes % Eosinophils % Basophils % Absolute Neutrophils Absolute Lymphocytes Absolute Monocytes Absolute Eosinophils Absolute Basophils VBG pH 7.41 VBG pCO2 43.3 VBG HCO3 26.9 VBG Base Excess 2.0 Sodium Potassium Chloride Carbon Dioxide Anion Gap BUN Creatinine Est GFR ( Amer) Est GFR (Non-Af Amer) Glucose Calcium Magnesium Triglycerides Cholesterol LDL Cholesterol Direct VLDL Cholesterol HDL Cholesterol TSH Free T4 Free T3 pg/mL 10/23/18 19:24 Clean Catch Midstream Urine Culture - Final Mixed Urogenital Alejandrina 10/23/18 10/23/18 17:10 17:10 Creatine Kinase 83 Troponin I 0.031 Impressions: Chest X-Ray 10/23/18 16:34 IMPRESSION: NO ACUTE RADIOGRAPHIC FINDING IN THE CHEST. Assessment and Plan - Diagnosis (1) Acute exacerbation of chronic obstructive pulmonary disease (COPD) Is this a current diagnosis for this admission?: Yes Plan: Continue nebs and supplemental O2, switch her over to some p.o. prednisone because her wheezing is a little bit better today, will monitor her response closely. (2) Diabetes mellitus type 2 in obese Is this a current diagnosis for this admission?: Yes Plan: Made worse currently by the steroids. She is on a sliding scale. - Time Time Spent with patient: 15-24 minutes
[2018-10-25] MEDS ORDERED: PREDNISONE 20 MG TABLET PO SCH (18:00)
[2018-10-25] MEDS: ONDANSETRON HCL INJ/PF 4 MG/2 ML SDV IV PRN (20:37)
[2018-10-25] MEDS: LEVOFLOXACIN 750 MG TABLET PO SCH (22:09)
[2018-10-26] MEDS: LEVALBUTEROL HCL NEB 1.25 MG/3 ML AMPUL NEB SCH ×3 (00:35→15:41)
[2018-10-26 05:20] LABS: HEMOGLOBIN 10.5 g/dL (12.0-15.5); MEAN CORPUSCULAR HEMOGLOBIN 29.4 pg (27.0-33.4); MEAN CORPUSCULAR VOLUME 87 fl (80-97); PLATELET COUNT 227 10^3/uL (150-450); RED BLOOD COUNT 3.59 10^6/uL (3.72-5.28); RED CELL DISTRIBUTION WIDTH 13.8 % (11.5-14.0)
[2018-10-26 05:50] LABS: ANION GAP 15 (5-19); BLOOD UREA NITROGEN 30 mg/dL (7-20); CALCIUM 9.1 mg/dL (8.4-10.2); CARBON DIOXIDE 26 mmol/L (22-30); CHLORIDE 96 mmol/L (98-107); GLUCOSE 269 mg/dL (75-110); POTASSIUM 4.7 mmol/L (3.6-5.0); SODIUM 136.7 mmol/L (137-145)
[2018-10-26 06:29] LABS: ABSOLUTE LYMPHOCYTES# (MANUAL) 9.6 10^3/uL (0.5-4.7); ABSOLUTE MONOCYTES # (MANUAL) 1.2 10^3/uL (0.1-1.4); ABSOLUTE NEUTROPHILS# (MANUAL) 18.3 10^3/uL (1.7-8.2); BAND NEUTROPHILS % (MANUAL) 1 % (3-5); BASOPHILS % (MANUAL) 0 % (0-2); EOSINOPHILS % (MANUAL) 0 % (0-6); LYMPHOCYTES % (MANUAL) 33 % (13-45); MONOCYTES % (MANUAL) 4 % (3-13); SEGMENTED NEUTROPHILS % (MAN) 62 % (42-78); TOTAL CELLS COUNTED 100
[2018-10-26 06:31] LABS: PLATELET COMMENT ADEQUATE; RBC MORPHOLOGY COMMENT NORMO-CYTIC/CHROMIC
[2018-10-26] MEDS: HEPARIN SOD (PORCINE) 5,000 UNIT/ML 1 ML SYRINGE SUBCUT SCH ×3 (06:32→22:14)
[2018-10-26] MEDS: BUDESONIDE NEB 0.5 MG/2 ML AMPUL NEB SCH ×2 (07:53→20:58)
[2018-10-26] MEDS: INSULIN REG, HUMAN 100 UNIT/ML 3 ML VIAL (PYX) SUBCUT SCH ×4 (08:00→22:14)
[2018-10-26] MEDS: MAGNESIUM SULFATE/D5W 1 GM/100 ML RTUPB IV SCH ×2 (08:45→10:04)
[2018-10-26] MEDS: METFORMIN HCL 500 MG TABLET PO SCH ×2 (10:09→18:04)
[2018-10-26] MEDS: HYDROCHLOROTHIAZIDE 12.5 MG TABLET PO SCH (10:09)
[2018-10-26] MEDS: FAMOTIDINE 20 MG TABLET PO SCH ×2 (10:10→22:15)
[2018-10-26] MEDS: LISINOPRIL 10 MG TABLET PO SCH (10:11)
[2018-10-26] MEDS: DOCUSATE SODIUM 100 MG CAPSULE PO SCH ×2 (10:11→18:05)
[2018-10-26] MEDS: INSULIN GLARGINE,HUM.REC.ANLOG 1,000 UNIT/10 ML VIAL SUBCUT SCH (10:21)
[2018-10-26] MEDS: METHYLPREDNISOLONE INJ 125 MG/2 ML SDV IV SCH ×2 (12:07→22:14)
[2018-10-26 12:59] LABS: PATH REVIEW PATHOLOGIST REVIEWED
--- NOTE | 2018-10-26 16:43 | PDOC PROGRESS REPORT ---
Subjective Progress Note for:: 10/26/18 Subjective:: No adverse events overnight. No new complaints. Her magnesium was low bit low this morning but she refused the IV magnesium. She still wheezing and she said that she would be willing to go back on the IV steroids. She has shortness of breath with activity but she is doing fairly well at rest on the nasal cannula. Reason For Visit: ACUTE EXACERBATION OF COPD Physical Exam Vital Signs: Temp Pulse Resp BP Pulse Ox 97.7 F 91 16 130/68 H 93 10/26/18 13:28 10/26/18 15:41 10/26/18 15:41 10/26/18 13:28 10/26/18 15:41 Intake & Output 10/25/18 10/26/18 10/27/18 06:59 06:59 06:59 Intake Total 1706 1531 Output Total 2600 Balance 1706 -1069 Weight 100.3 kg 99.1 kg General appearance: PRESENT: no acute distress, cooperative, disheveled, morbidly obese Respiratory exam: PRESENT: prolonged expiratory phas, symmetrical, unlabored, wheezes. ABSENT: accessory muscle use, crackles, rhonchi, tachypnea Cardiovascular exam: PRESENT: RRR, +S1, +S2 Pulses: PRESENT: normal carotid pulses Vascular exam: PRESENT: normal capillary refill GI/Abdominal exam: PRESENT: normal bowel sounds, soft. ABSENT: distended, guarding, rebound, tenderness Extremities exam: ABSENT: clubbing, pedal edema Musculoskeletal exam: PRESENT: normal inspection. ABSENT: deformity Neurological exam: PRESENT: alert, awake, oriented to person, oriented to place, oriented to time, oriented to situation Psychiatric exam: PRESENT: flat affect Skin exam: PRESENT: dry, pallor, warm Results Laboratory Results: 10/26/18 04:17 10/26/18 04:17 10/26/18 10/26/18 04:17 04:17 WBC 29.0 H RBC 3.59 L Hgb 10.5 L Hct 31.0 L MCV 87 MCH 29.4 MCHC 34.0 RDW 13.8 Plt Count 227 Seg Neutrophils % Not Reportable Lymphocytes % Not Reportable Monocytes % Not Reportable Eosinophils % Not Reportable Basophils % Not Reportable Absolute Neutrophils Not Reportable Absolute Lymphocytes Not Reportable Absolute Monocytes Not Reportable Absolute Eosinophils Not Reportable Absolute Basophils Not Reportable Sodium 136.7 L Potassium 4.7 Chloride 96 L Carbon Dioxide 26 Anion Gap 15 BUN 30 H Creatinine 1.03 Est GFR ( Amer) > 60 Est GFR (Non-Af Amer) 55 L Glucose 269 H Calcium 9.1 Magnesium 1.5 L 10/23/18 19:24 Clean Catch Midstream Urine Culture - Final Mixed Urogenital Alejandrina 10/23/18 10/23/18 17:10 17:10 Creatine Kinase 83 Troponin I 0.031 Impressions: Chest X-Ray 10/23/18 16:34 IMPRESSION: NO ACUTE RADIOGRAPHIC FINDING IN THE CHEST. Assessment and Plan - Diagnosis (1) Acute exacerbation of chronic obstructive pulmonary disease (COPD) Is this a current diagnosis for this admission?: Yes Plan: We will switch her back over to Solu-Medrol, we tried prednisone because she initially did not want to be on the sodium all, but I think she is getting some IV steroids for a few more days because she still wheezing pretty hard. (2) Diabetes mellitus type 2 in obese Is this a current diagnosis for this admission?: Yes Plan: Continue sliding scale, may require some modification after restarting IV steroids. - Time Time Spent with patient: 15-24 minutes
[2018-10-26] MEDS: MAGNESIUM OXIDE 400 MG TABLET PO SCH (18:05)
[2018-10-26] MEDS: ONDANSETRON HCL INJ/PF 4 MG/2 ML SDV IV PRN (19:52)
[2018-10-26] MEDS: LEVOFLOXACIN 750 MG TABLET PO SCH (22:15)
[2018-10-27] MEDS: LEVALBUTEROL HCL NEB 1.25 MG/3 ML AMPUL NEB SCH ×2 (00:13→08:37)
[2018-10-27 03:24] LABS: HEMATOCRIT 34.6 % (36.0-47.0); HEMOGLOBIN 11.7 g/dL (12.0-15.5); MEAN CORPUSCULAR HEMOGLOBIN 28.9 pg (27.0-33.4); MEAN CORPUSCULAR HGB CONC 33.7 g/dL (32.0-36.0); MEAN CORPUSCULAR VOLUME 86 fl (80-97); PLATELET COUNT 248 10^3/uL (150-450); RED BLOOD COUNT 4.04 10^6/uL (3.72-5.28); RED CELL DISTRIBUTION WIDTH 13.7 % (11.5-14.0); WHITE BLOOD COUNT 26.4 10^3/uL (4.0-10.5)
[2018-10-27 03:41] LABS: ANION GAP 12 (5-19); BLOOD UREA NITROGEN 26 mg/dL (7-20); CALCIUM 9.3 mg/dL (8.4-10.2); CARBON DIOXIDE 28 mmol/L (22-30); CHLORIDE 96 mmol/L (98-107); GLUCOSE 200 mg/dL (75-110); POTASSIUM 4.4 mmol/L (3.6-5.0); SODIUM 136.4 mmol/L (137-145)
[2018-10-27 03:59] LABS: ABSOLUTE LYMPHOCYTES# (MANUAL) 11.1 10^3/uL (0.5-4.7); ABSOLUTE MONOCYTES # (MANUAL) 0.5 10^3/uL (0.1-1.4); ABSOLUTE NEUTROPHILS# (MANUAL) 14.8 10^3/uL (1.7-8.2); BASOPHILS % (MANUAL) 0 % (0-2); EOSINOPHILS % (MANUAL) 0 % (0-6); LYMPHOCYTES % (MANUAL) 38 % (13-45); MONOCYTES % (MANUAL) 2 % (3-13); SEGMENTED NEUTROPHILS % (MAN) 56 % (42-78); TOTAL CELLS COUNTED 100
[2018-10-27 04:02] LABS: PLATELET COMMENT ADEQUATE; RBC MORPHOLOGY COMMENT MN
[2018-10-27 04:10] LABS: SMUDGE CELLS PRESENT
[2018-10-27] MEDS: METHYLPREDNISOLONE INJ 125 MG/2 ML SDV IV SCH ×3 (05:21→21:19)
[2018-10-27] MEDS: HEPARIN SOD (PORCINE) 5,000 UNIT/ML 1 ML SYRINGE SUBCUT SCH ×3 (05:21→21:19)
[2018-10-27] MEDS: INSULIN REG, HUMAN 100 UNIT/ML 3 ML VIAL (PYX) SUBCUT SCH ×4 (07:57→21:20)
[2018-10-27] MEDS: BUDESONIDE NEB 0.5 MG/2 ML AMPUL NEB SCH (08:37)
[2018-10-27] MEDS: HYDROCHLOROTHIAZIDE 12.5 MG TABLET PO SCH (10:00)
[2018-10-27] MEDS: FAMOTIDINE 20 MG TABLET PO SCH ×2 (10:00→21:20)
[2018-10-27] MEDS: METFORMIN HCL 500 MG TABLET PO SCH ×2 (10:01→17:25)
[2018-10-27] MEDS: LISINOPRIL 10 MG TABLET PO SCH (10:01)
[2018-10-27] MEDS: INSULIN GLARGINE,HUM.REC.ANLOG 1,000 UNIT/10 ML VIAL SUBCUT SCH (11:02)
[2018-10-27] MEDS: DOCUSATE SODIUM 100 MG CAPSULE PO SCH ×2 (13:20→18:45)
[2018-10-27] MEDS: MAGNESIUM OXIDE 400 MG TABLET PO SCH ×2 (13:21→18:44)
--- NOTE | 2018-10-27 15:11 | PDOC PROGRESS REPORT ---
Subjective Progress Note for:: 10/27/18 Subjective:: This is a 58 year old female with COPD and DM 2 who presented with productive cough and increasing shortness of breath. She was admitted for COPD exacerbation. Appears she was switched back to IV from oral steroids yesterday as she had recurrence of worsening wheezes. No acute event overnight. This morning, she says her SOB is about the same from yesterday. She hannah shave significant bilateral wheezes on examination. Reason For Visit: ACUTE EXACERBATION OF COPD Physical Exam Vital Signs: Temp Pulse Resp BP Pulse Ox 97.7 F 104 H 16 143/83 H 98 10/27/18 12:35 10/27/18 12:35 10/27/18 12:35 10/27/18 12:35 10/27/18 12:35 Intake & Output 10/26/18 10/27/18 10/28/18 06:59 06:59 06:59 Intake Total 1531 240 Output Total 2600 950 900 Balance -1069 -950 -660 Weight 218 lb 7.649 oz 216 lb 14.958 oz General appearance: PRESENT: no acute distress, well-developed, well-nourished Head exam: PRESENT: atraumatic, normocephalic Eye exam: PRESENT: conjunctiva pink, EOMI, PERRLA. ABSENT: scleral icterus Ear exam: PRESENT: normal external ear exam Neck exam: ABSENT: carotid bruit, JVD, lymphadenopathy, thyromegaly Respiratory exam: PRESENT: rhonchi, wheezes. ABSENT: rales Cardiovascular exam: PRESENT: RRR. ABSENT: diastolic murmur, rubs, systolic murmur Pulses: PRESENT: normal dorsalis pedis pul GI/Abdominal exam: PRESENT: normal bowel sounds, soft. ABSENT: distended, guarding, mass, organolmegaly, rebound, tenderness Rectal exam: PRESENT: deferred Neurological exam: PRESENT: alert, awake, oriented to person, oriented to place, oriented to time, oriented to situation, CN II-XII grossly intact. ABSENT: motor sensory deficit Results Laboratory Results: 10/27/18 02:35 10/27/18 02:35 10/27/18 10/27/18 02:35 02:35 WBC 26.4 H RBC 4.04 Hgb 11.7 L Hct 34.6 L MCV 86 MCH 28.9 MCHC 33.7 RDW 13.7 Plt Count 248 Seg Neutrophils % Not Reportable Lymphocytes % Not Reportable Monocytes % Not Reportable Eosinophils % Not Reportable Basophils % Not Reportable Absolute Neutrophils Not Reportable Absolute Lymphocytes Not Reportable Absolute Monocytes Not Reportable Absolute Eosinophils Not Reportable Absolute Basophils Not Reportable Sodium 136.4 L Potassium 4.4 Chloride 96 L Carbon Dioxide 28 Anion Gap 12 BUN 26 H Creatinine 1.00 Est GFR ( Amer) > 60 Est GFR (Non-Af Amer) 57 L Glucose 200 H Calcium 9.3 Magnesium 1.8 10/23/18 10/23/18 17:10 17:10 Creatine Kinase 83 Troponin I 0.031 Impressions: Chest X-Ray 10/23/18 16:34 IMPRESSION: NO ACUTE RADIOGRAPHIC FINDING IN THE CHEST. Assessment and Plan - Diagnosis (1) Acute exacerbation of chronic obstructive pulmonary disease (COPD) Is this a current diagnosis for this admission?: Yes Plan: Switched back to Iv steroids yesterday. Will continue solumedrol at 60 mg q8h for now. Revise breathing treatments to duoneb q4h scheduled. (2) Diabetes mellitus type 2 in obese Is this a current diagnosis for this admission?: Yes Plan: Continue Lantus and sliding scale - Time Time Spent with patient: 15-24 minutes
[2018-10-27] MEDS: IPRATROPIUM/ALBUTEROL 0.5-2.5 MG/3 ML AMPUL NEB SCH ×2 (16:35→20:05)
[2018-10-27] MEDS: LEVOFLOXACIN 750 MG TABLET PO SCH (21:20)
[2018-10-28] MEDS: IPRATROPIUM/ALBUTEROL 0.5-2.5 MG/3 ML AMPUL NEB SCH ×6 (00:16→19:44)
[2018-10-28] MEDS: HEPARIN SOD (PORCINE) 5,000 UNIT/ML 1 ML SYRINGE SUBCUT SCH ×3 (05:26→21:26)
[2018-10-28] MEDS: METHYLPREDNISOLONE INJ 125 MG/2 ML SDV IV SCH ×2 (05:26→20:03)
[2018-10-28] MEDS: INSULIN REG, HUMAN 100 UNIT/ML 3 ML VIAL (PYX) SUBCUT SCH ×4 (07:53→21:26)
[2018-10-28] MEDS: IBUPROFEN 600 MG TABLET PO PRN (09:06)
[2018-10-28] MEDS: HYDROCHLOROTHIAZIDE 12.5 MG TABLET PO SCH (11:14)
[2018-10-28] MEDS: DOCUSATE SODIUM 100 MG CAPSULE PO SCH ×2 (11:14→18:37)
[2018-10-28] MEDS: LISINOPRIL 10 MG TABLET PO SCH (11:15)
[2018-10-28] MEDS: FAMOTIDINE 20 MG TABLET PO SCH ×2 (11:15→21:27)
[2018-10-28] MEDS: METFORMIN HCL 500 MG TABLET PO SCH ×2 (11:16→18:29)
[2018-10-28] MEDS: INSULIN GLARGINE,HUM.REC.ANLOG 1,000 UNIT/10 ML VIAL SUBCUT SCH (11:16)
[2018-10-28] MEDS: MAGNESIUM OXIDE 400 MG TABLET PO SCH ×2 (11:21→18:37)
--- NOTE | 2018-10-28 14:14 | PDOC PROGRESS REPORT ---
Subjective Progress Note for:: 10/28/18 Subjective:: This is a 58 year old female with COPD and DM 2 who presented with productive cough and increasing shortness of breath. She was admitted for COPD exacerbation. 10/27: Appears she was switched back to IV from oral steroids yesterday as she had recurrence of worsening wheezes. No acute event overnight. This morning, she says her SOB is about the same from yesterday. She does have significant bilateral wheezes on examination. 10/28: No acute event overnight. She says her SOB has slightly improved from yesterday. She continues to have bilateral wheezes this morning albeit slightly improved form yesterday. Will try to decrease IV steroids today. Reason For Visit: ACUTE EXACERBATION OF COPD Physical Exam Vital Signs: Temp Pulse Resp BP Pulse Ox 98.0 F 83 16 130/66 H 95 10/28/18 07:49 10/28/18 08:58 10/28/18 08:58 10/28/18 07:49 10/28/18 08:58 Intake & Output 10/27/18 10/28/18 10/29/18 06:59 06:59 06:59 Intake Total 1213 Output Total 950 903 Balance -950 310 Weight 216 lb 14.958 oz 216 lb 7.903 oz General appearance: PRESENT: no acute distress, well-developed, well-nourished Head exam: PRESENT: atraumatic, normocephalic Eye exam: PRESENT: conjunctiva pink, EOMI, PERRLA. ABSENT: scleral icterus Ear exam: PRESENT: normal external ear exam Mouth exam: PRESENT: moist, tongue midline Neck exam: ABSENT: carotid bruit, JVD, lymphadenopathy, thyromegaly Respiratory exam: PRESENT: wheezes. ABSENT: rales, rhonchi Cardiovascular exam: PRESENT: RRR. ABSENT: diastolic murmur, rubs, systolic murmur Pulses: PRESENT: normal dorsalis pedis pul GI/Abdominal exam: PRESENT: normal bowel sounds, soft. ABSENT: distended, guarding, mass, organolmegaly, rebound, tenderness Rectal exam: PRESENT: deferred Neurological exam: PRESENT: alert, awake, oriented to person, oriented to place, oriented to time, oriented to situation, CN II-XII grossly intact. ABSENT: motor sensory deficit Results Laboratory Results: 10/27/18 02:35 10/27/18 02:35 10/23/18 10/23/18 17:10 17:10 Creatine Kinase 83 Troponin I 0.031 Impressions: Chest X-Ray 10/23/18 16:34 IMPRESSION: NO ACUTE RADIOGRAPHIC FINDING IN THE CHEST. Assessment and Plan - Diagnosis (1) Acute exacerbation of chronic obstructive pulmonary disease (COPD) Is this a current diagnosis for this admission?: Yes Plan: 10/27: Switched back to IV steroids yesterday. Will continue solumedrol at 60 mg q8h for now. Revise breathing treatments to duoneb q4h scheduled. 10/28: Reduce solumedro to 40 mg q12h. Continue scheduled breathing treatments. (2) Diabetes mellitus type 2 in obese Is this a current diagnosis for this admission?: Yes Plan: sugars running in the 200-300s. Steroids likely worsening hyperglycemia. In crease Lantus to 50 u and continue sliding scale. - Time Time Spent with patient: 15-24 minutes
[2018-10-28] MEDS: METHYLPREDNISOLONE INJ 40 MG/1 ML SDV IV SCH (21:26)
[2018-10-28] MEDS: LEVOFLOXACIN 750 MG TABLET PO SCH (21:27)
[2018-10-28] MEDS ORDERED: METHYLPREDNISOLONE INJ 125 MG/2 ML SDV IV SCH (22:00)
[2018-10-28] MEDS: ONDANSETRON HCL INJ/PF 4 MG/2 ML SDV IV PRN (23:31)
[2018-10-29] MEDS: IPRATROPIUM/ALBUTEROL 0.5-2.5 MG/3 ML AMPUL NEB SCH ×7 (00:12→20:49)
[2018-10-29] MEDS: HEPARIN SOD (PORCINE) 5,000 UNIT/ML 1 ML SYRINGE SUBCUT SCH ×3 (05:11→21:46)
[2018-10-29 06:12] LABS: HEMOGLOBIN 12.2 g/dL (12.0-15.5); MEAN CORPUSCULAR HEMOGLOBIN 28.2 pg (27.0-33.4); MEAN CORPUSCULAR VOLUME 86 fl (80-97); PLATELET COUNT 270 10^3/uL (150-450); RED BLOOD COUNT 4.33 10^6/uL (3.72-5.28); RED CELL DISTRIBUTION WIDTH 13.7 % (11.5-14.0)
[2018-10-29 06:23] LABS: ANION GAP 11 (5-19); BLOOD UREA NITROGEN 34 mg/dL (7-20); CALCIUM 8.9 mg/dL (8.4-10.2); CARBON DIOXIDE 27 mmol/L (22-30); CHLORIDE 100 mmol/L (98-107); GLUCOSE 101 mg/dL (75-110); POTASSIUM 3.7 mmol/L (3.6-5.0); SODIUM 137.5 mmol/L (137-145)
[2018-10-29 06:45] LABS: WHITE BLOOD COUNT 33.1 10^3/uL (4.0-10.5)
[2018-10-29 06:47] LABS: ABSOLUTE LYMPHOCYTES# (MANUAL) 16.9 10^3/uL (0.5-4.7); ABSOLUTE NEUTROPHILS# (MANUAL) 15.2 10^3/uL (1.7-8.2); BAND NEUTROPHILS % (MANUAL) 3 % (3-5); BASOPHILS % (MANUAL) 0 % (0-2); EOSINOPHILS % (MANUAL) 0 % (0-6); LYMPHOCYTES % (MANUAL) 50 % (13-45); METAMYELOCYTES % (MANUAL) 1 % (0); MONOCYTES % (MANUAL) 3 % (3-13); SEGMENTED NEUTROPHILS % (MAN) 42 % (42-78); TOTAL CELLS COUNTED 100
[2018-10-29 06:48] LABS: PLATELET COMMENT ADEQUATE; RBC MORPHOLOGY COMMENT NORMO-CYTIC/CHROMIC; SMUDGE CELLS PRESENT
[2018-10-29] MEDS: INSULIN REG, HUMAN 100 UNIT/ML 3 ML VIAL (PYX) SUBCUT SCH ×4 (08:42→21:55)
[2018-10-29] MEDS: HYDROCHLOROTHIAZIDE 12.5 MG TABLET PO SCH (09:44)
[2018-10-29] MEDS: FAMOTIDINE 20 MG TABLET PO SCH ×2 (09:45→21:47)
[2018-10-29] MEDS: LISINOPRIL 10 MG TABLET PO SCH (09:45)
[2018-10-29] MEDS: METFORMIN HCL 500 MG TABLET PO SCH ×2 (09:45→18:33)
[2018-10-29] MEDS: DOCUSATE SODIUM 100 MG CAPSULE PO SCH ×2 (09:45→18:33)
[2018-10-29] MEDS: MAGNESIUM OXIDE 400 MG TABLET PO SCH ×2 (09:45→18:33)
[2018-10-29] MEDS: METHYLPREDNISOLONE INJ 40 MG/1 ML SDV IV SCH (09:46)
[2018-10-29] MEDS: INSULIN GLARGINE,HUM.REC.ANLOG 1,000 UNIT/10 ML VIAL SUBCUT SCH (09:54)
--- NOTE | 2018-10-29 14:40 | PDOC PROGRESS REPORT ---
Subjective Progress Note for:: 10/29/18 Subjective:: This is a 58 year old female with COPD and DM 2 who presented with productive cough and increasing shortness of breath. She was admitted for COPD exacerbation. 10/27: Appears she was switched back to IV from oral steroids yesterday as she had recurrence of worsening wheezes. No acute event overnight. This morning, she says her SOB is about the same from yesterday. She does have significant bilateral wheezes on examination. 10/28: She says her SOB has slightly improved from yesterday. She continues to have bilateral wheezes this morning albeit slightly improved form yesterday. Will try to decrease IV steroids today. 10/29: No acute event overnight. She says her SOB has improved today but is not at baseline yet. She has bilateral wheezes this morning but this continue to improve compared to yesterday. Will switch to oral steroids today and see if she will continue to improve on prednisone. Reason For Visit: ACUTE EXACERBATION OF COPD Physical Exam Vital Signs: Temp Pulse Resp BP Pulse Ox 97.6 F 98 18 115/60 96 10/29/18 11:24 10/29/18 12:57 10/29/18 12:57 10/29/18 11:24 10/29/18 12:57 Intake & Output 10/28/18 10/29/18 10/30/18 06:59 06:59 06:59 Intake Total 1213 472 474 Output Total 903 702 Balance 310 -230 474 Weight 216 lb 7.903 oz 216 lb 14.958 oz General appearance: PRESENT: no acute distress, well-developed, well-nourished Head exam: PRESENT: atraumatic, normocephalic Eye exam: PRESENT: conjunctiva pink, EOMI, PERRLA. ABSENT: scleral icterus Ear exam: PRESENT: normal external ear exam Mouth exam: PRESENT: moist, tongue midline Neck exam: ABSENT: carotid bruit, JVD, lymphadenopathy, thyromegaly Respiratory exam: PRESENT: wheezes. ABSENT: rales, rhonchi Cardiovascular exam: PRESENT: RRR. ABSENT: diastolic murmur, rubs, systolic murmur Pulses: PRESENT: normal dorsalis pedis pul GI/Abdominal exam: PRESENT: normal bowel sounds, soft. ABSENT: distended, guarding, mass, organolmegaly, rebound, tenderness Rectal exam: PRESENT: deferred Neurological exam: PRESENT: alert, awake, oriented to person, oriented to place, oriented to time, oriented to situation, CN II-XII grossly intact. ABSENT: motor sensory deficit Results Laboratory Results: 10/29/18 05:20 10/29/18 05:20 10/29/18 10/29/18 05:20 05:20 WBC 33.1 H* RBC 4.33 Hgb 12.2 Hct 37.0 MCV 86 MCH 28.2 MCHC 33.0 RDW 13.7 Plt Count 270 Seg Neutrophils % Not Reportable Lymphocytes % Not Reportable Monocytes % Not Reportable Eosinophils % Not Reportable Basophils % Not Reportable Absolute Neutrophils Not Reportable Absolute Lymphocytes Not Reportable Absolute Monocytes Not Reportable Absolute Eosinophils Not Reportable Absolute Basophils Not Reportable Sodium 137.5 Potassium 3.7 Chloride 100 Carbon Dioxide 27 Anion Gap 11 BUN 34 H Creatinine 1.08 Est GFR ( Amer) > 60 Est GFR (Non-Af Amer) 52 L Glucose 101 Calcium 8.9 10/23/18 10/23/18 17:10 17:10 Creatine Kinase 83 Troponin I 0.031 Impressions: Chest X-Ray 10/23/18 16:34 IMPRESSION: NO ACUTE RADIOGRAPHIC FINDING IN THE CHEST. Assessment and Plan - Diagnosis (1) Acute exacerbation of chronic obstructive pulmonary disease (COPD) Is this a current diagnosis for this admission?: Yes Plan: 10/27: Switched back to IV steroids yesterday. Will continue solumedrol at 60 mg q8h for now. Revise breathing treatments to duoneb q4h scheduled. 10/28: Reduce solumedrol to 40 mg q12h. Continue scheduled breathing treatments. 10/29: Switch solumedrol to prednisone. (2) Diabetes mellitus type 2 in obese Is this a current diagnosis for this admission?: Yes Plan: Sugars running in the 200-300s. Steroids likely worsening hyperglycemia. Increase Lantus to 50 u and continue sliding scale. 10/29: Sugars better today. - Time Time Spent with patient: 25-34 minutes
[2018-10-29] MEDS: PREDNISONE 20 MG TABLET PO SCH (18:33)
[2018-10-29] MEDS: ONDANSETRON HCL INJ/PF 4 MG/2 ML SDV IV PRN (20:32)
[2018-10-29] MEDS: LEVOFLOXACIN 750 MG TABLET PO SCH (21:47)
[2018-10-30] MEDS: IPRATROPIUM/ALBUTEROL 0.5-2.5 MG/3 ML AMPUL NEB SCH ×6 (00:01→16:26)
[2018-10-30] MEDS: HEPARIN SOD (PORCINE) 5,000 UNIT/ML 1 ML SYRINGE SUBCUT SCH ×2 (05:18→13:15)
[2018-10-30 06:07] LABS: HEMATOCRIT 34.1 % (36.0-47.0); HEMOGLOBIN 11.4 g/dL (12.0-15.5); MEAN CORPUSCULAR HEMOGLOBIN 29.3 pg (27.0-33.4); MEAN CORPUSCULAR HGB CONC 33.3 g/dL (32.0-36.0); MEAN CORPUSCULAR VOLUME 88 fl (80-97); PLATELET COUNT 241 10^3/uL (150-450); RED BLOOD COUNT 3.88 10^6/uL (3.72-5.28)
[2018-10-30 06:40] LABS: WHITE BLOOD COUNT 32.6 10^3/uL (4.0-10.5)
[2018-10-30 06:42] LABS: ABSOLUTE NEUTROPHILS# (MANUAL) 17.6 10^3/uL (1.7-8.2); BASOPHILS % (MANUAL) 0 % (0-2); EOSINOPHILS % (MANUAL) 0 % (0-6); LYMPHOCYTES % (MANUAL) 43 % (13-45); MONOCYTES % (MANUAL) 3 % (3-13); SEGMENTED NEUTROPHILS % (MAN) 54 % (42-78); TOTAL CELLS COUNTED 100
[2018-10-30 06:43] LABS: PLATELET COMMENT ADEQUATE; RBC MORPHOLOGY COMMENT NORMO-CYTIC/CHROMIC; SMUDGE CELLS PRESENT
[2018-10-30] MEDS: MAGNESIUM OXIDE 400 MG TABLET PO SCH (09:26)
[2018-10-30] MEDS: PREDNISONE 20 MG TABLET PO SCH (09:26)
[2018-10-30] MEDS: INSULIN REG, HUMAN 100 UNIT/ML 3 ML VIAL (PYX) SUBCUT SCH ×2 (09:26→13:15)
[2018-10-30] MEDS: FAMOTIDINE 20 MG TABLET PO SCH (09:27)
[2018-10-30] MEDS: LISINOPRIL 10 MG TABLET PO SCH (09:27)
[2018-10-30] MEDS: METFORMIN HCL 500 MG TABLET PO SCH (09:27)
[2018-10-30] MEDS: DOCUSATE SODIUM 100 MG CAPSULE PO SCH (09:27)
[2018-10-30] MEDS: HYDROCHLOROTHIAZIDE 12.5 MG TABLET PO SCH (09:28)
[2018-10-30] MEDS: INSULIN GLARGINE,HUM.REC.ANLOG 1,000 UNIT/10 ML VIAL SUBCUT SCH (09:36)
[2018-10-30 12:39] VITALS: BP 112/59
[2018-10-30] MEDS: ONDANSETRON HCL INJ/PF 4 MG/2 ML SDV IV PRN (13:44)
--- NOTE | 2018-10-30 18:09 | PDOC DISCHARGE SUMMARY ---
General - Admit/Disc Date/PCP Admission Date/Primary Care Provider: 10/23/18 22:59 [facility] Discharge Date: 10/30/18 - Discharge Diagnosis (1) Acute exacerbation of chronic obstructive pulmonary disease (COPD) Is this a current diagnosis for this admission?: Yes (2) Diabetes mellitus type 2 in obese Is this a current diagnosis for this admission?: Yes - Additional Information Resuscitation Status: Full Code Discharge Diet: As Tolerated Discharge Activity: Activity As Tolerated, Balance Activity w/Rest Prescriptions: Budesonide/Formoterol Fumarate [Symbicort Hfa 160-4.5 Mcg Inhaler 6 gm] 1 puff IH Q12 #1 inhaler Omeprazole Magnesium [Prilosec Otc] 20 mg PO QAM #14 tablet. Prednisone [Deltasone 20 mg Tablet] 20 mg PO BID 5 Days #10 tablet Tiotropium [place] [Spiriva Handihaler 5 Cap/Kit (18 Mcg/Cap)] 1 cap IH DAILY #30 capsule Home Medications: Albuterol Sulfate [Proair HFA Inhalation Aerosol 8.5 gm MDI] 2 puff IH Q4 PRN 10/24/18 Insulin Glargine,Hum.rec.anlog [Lantus Insulin 100 Unit/1 ml 10 ml] 40 unit SUBCUT QHS 10/24/18 Lisinopril/Hydrochlorothiazide [Zestoretic 20-25 mg Tablet] 1 tab PO DAILY 10/24/18 Metformin HCl [Glucophage] 1,000 mg PO BID 10/24/18 Sertraline HCl [Zoloft] 25 mg PO QHS 10/24/18 Sitagliptin Phosphate [Januvia 50 mg Tablet] 50 mg PO DAILY 10/24/18 Budesonide/Formoterol Fumarate [Symbicort Hfa 160-4.5 Mcg Inhaler 6 gm] 1 puff IH Q12 #1 inhaler 10/30/18 Omeprazole Magnesium [Prilosec Otc] 20 mg PO QAM #14 tablet. 10/30/18 Prednisone [Deltasone 20 mg Tablet] 20 mg PO BID 5 Days #10 tablet 10/30/18 Tiotropium [place] [Spiriva Handihaler 5 Cap/Kit (18 Mcg/Cap)] 1 cap IH DAILY #30 capsule 10/30/18 History of Present Illness History of Present Illness: Admitting hospitalit's H&P: EDWARDO PATRICK is a 58 year old female who presented to the emergency room with a one-week history of dyspnea. She admits mild dyspnea with an associated cough productive of moderate amounts of thick tenacious purulent yellow sputum beginning 1 week ago but suddenly worsening today after an outing to eat lunch with her daughter she suddenly developed markedly increased dyspnea and could not "catch her breath" she tried using her home nebulizer as well as handheld inhalers with no relief and subsequently presented to the emergency room with severe dyspnea. She admits having prior similar episodes with other asthma/COPD attacks. She has not identified any aggravating or ameliorating factors for her sudden worsening dyspnea today. In the emergency room she was found to be significantly dyspneic though not hypoxic. She had significant work of breathing but did not wish to use a BiPAP or CPAP mask unless absolutely necessary. She was treated with multiple nebulizers and intravenous steroids and did show some mild improvement but continued to be significantly dyspneic and unable to tolerate any activity due to her dyspnea. She was subsequently admitted to hospital for further evaluation and treatment. Hospital Course Hospital Course: This is a 58 year old female with COPD and DM 2 who presented with productive cough and increasing shortness of breath. She was admitted for COPD exacerbation. She was started on IV steroids, breathing treatments and Levaquin. 10/27: Appears she was switched back to IV from oral steroids yesterday as she had recurrence of worsening wheezes. No acute event overnight. This morning, she says her SOB is about the same from yesterday. She does have significant bilateral wheezes on examination. 10/28: She says her SOB has slightly improved from yesterday. She continues to have bilateral wheezes this morning albeit slightly improved form yesterday. Will try to decrease IV steroids today. 10/29: She says her SOB has improved today but is not at baseline yet. She has bilateral wheezes this morning but this continue to improve compared to yesterday. Switch to oral steroids today and see if she will continue to improve on prednisone. She continued to improve on prednisone. A 6 minute walk est was done on day of discharge and her sats maintianed at 97-99% on room air with no issues. She did express that she does not like to continue the prednisone as it is giving her stomach upset. Discussed she will be discharged on a lower dose and will also be given a PPI to help alleviate this. She expressed she does not want to go home as she has house mates who smoke. She does is not eligible however for placement. She was however given resources and options for [facility] by city planner. She will be resumed on her Symbicort inhaler. Explained she also needs Spiriva but patient says she stopped using Sprivia because she says "I don't like using it". Explained its importance in her context and she says she will try to be compliant to Spiriva. Physical Exam Vital Signs: Temp Pulse Resp BP Pulse Ox 97.7 F 105 H 16 112/59 L 95 10/30/18 16:53 10/30/18 16:53 10/30/18 16:53 10/30/18 16:53 10/30/18 16:53 Intake & Output 10/29/18 10/30/18 10/31/18 06:59 06:59 06:59 Intake Total 472 1185 237 Output Total 702 2200 Balance -230 -1015 237 Weight 216 lb 14.958 oz 221 lb 5.506 oz General appearance: PRESENT: no acute distress, well-developed, well-nourished Head exam: PRESENT: atraumatic, normocephalic Eye exam: PRESENT: conjunctiva pink, EOMI, PERRLA. ABSENT: scleral icterus Ear exam: PRESENT: normal external ear exam Mouth exam: PRESENT: moist, tongue midline Neck exam: ABSENT: carotid bruit, JVD, lymphadenopathy, thyromegaly Respiratory exam: PRESENT: wheezes - minimal on the bases likely her baseline. ABSENT: rales, rhonchi Cardiovascular exam: PRESENT: RRR. ABSENT: diastolic murmur, rubs, systolic mur mur Pulses: PRESENT: normal dorsalis pedis pul GI/Abdominal exam: PRESENT: normal bowel sounds, soft. ABSENT: distended, guarding, mass, organolmegaly, rebound, tenderness Rectal exam: PRESENT: deferred Extremities exam: PRESENT: full ROM. ABSENT: calf tenderness, clubbing, pedal edema Neurological exam: PRESENT: alert, awake, oriented to person, oriented to place, oriented to time, oriented to situation, CN II-XII grossly intact. ABSENT: motor sensory deficit Results Laboratory Results: 10/30/18 04:46 10/29/18 05:20 10/30/18 04:46 WBC 32.6 H* RBC 3.88 Hgb 11.4 L Hct 34.1 L MCV 88 MCH 29.3 MCHC 33.3 RDW 14.0 Plt Count 241 Seg Neutrophils % Not Reportable Lymphocytes % Not Reportable Monocytes % Not Reportable Eosinophils % Not Reportable Basophils % Not Reportable Absolute Neutrophils Not Reportable Absolute Lymphocytes Not Reportable Absolute Monocytes Not Reportable Absolute Eosinophils Not Reportable Absolute Basophils Not Reportable 10/23/18 10/23/18 17:10 17:10 Creatine Kinase 83 Troponin I 0.031 Impressions: Chest X-Ray 10/23/18 16:34 IMPRESSION: NO ACUTE RADIOGRAPHIC FINDING IN THE CHEST. Qualifiers - * PATIENT BEING DISCHARGED WITH ANY OF THE FOLLOWING DIAGNOSIS: No Acute Heart Failure Is this a Heart Failure Patient?: No
== END 2018-10-30 18:33 | disposition home or self-care (01) | DRG 192 ==
LOC: ER 15:44 → EH 22:59 → 3W 10-24 00:43
PROVIDERS: ADMIT Emergency Medicine; ATTEND Emergency Medicine
DX: J44.1 Chronic obstructive pulmonary disease with (acute) exacerbation (principal); E78.00 Pure hypercholesterolemia, unspecified; I10 Essential (primary) hypertension; E11.8 Type 2 diabetes mellitus with unspecified complications; Z79.2 Long term (current) use of antibiotics; Z79.84 Long term (current) use of oral hypoglycemic drugs; Z79.4 Long term (current) use of insulin; Z79.51 Long term (current) use of inhaled steroids; Z79.52 Long term (current) use of systemic steroids; Z79.899 Other long term (current) drug therapy
CPT/HCPCS: 36415; 71046; 80048; 80053; 80061; 81001; 82550; 82803; 82962; 83735; 84439; 84443; 84481; 84484; 85025; 87086; 93005; 93010; 94640; 96374; 99285; J1644; J1815; J1956; J2060; J2405; J2920; J2930; J3475; J3490; J7120; J7512; J7614; J7620

== ENCOUNTER 2018-11-20 10:35 | Emergency (ER) | payer MEDICAID ==
[2018-11-20] MEDS ORDERED: NORMAL SALINE 1000 ML 1,000 ML IV ONE (12:25)
[2018-11-20] MEDS ORDERED: ALBUTEROL SULFATE 0.083% NEB 2.5 MG/3 ML AMPUL NEB ONE (12:25)
[2018-11-20 12:50] LABS: HEMATOCRIT 36.2 % (36.0-47.0); HEMOGLOBIN 12.2 g/dL (12.0-15.5); MEAN CORPUSCULAR HEMOGLOBIN 29.1 pg (27.0-33.4); MEAN CORPUSCULAR HGB CONC 33.6 g/dL (32.0-36.0); MEAN CORPUSCULAR VOLUME 87 fl (80-97); PLATELET COUNT 295 10^3/uL (150-450); RED BLOOD COUNT 4.19 10^6/uL (3.72-5.28); RED CELL DISTRIBUTION WIDTH 13.9 % (11.5-14.0); WHITE BLOOD COUNT 15.8 10^3/uL (4.0-10.5)
--- NOTE | 2018-11-20 12:57 | ER Document Report ---
Entered by GALA MILTON SCRIBE 11/20/18 1234 Acting as scribe for:SUDHIR SOTO MD ED General - General Stated Complaint: SHORTNESS OF BREATH Time Seen by Provider: 11/20/18 12:19 [facility] - Follow up as needed Mode of Arrival: Medic Information source: Patient Notes: Patient is a 58 year old female with HTN, HLD, COPD, type 2 diabetes presents to the emergency department complaining of a sudden onset shortness of breath onset today. Patient states she took a puff of her albuterol inhaler and albuterol nebulizer with no relief. She states she then proceeded to take a dose of prednisone with no relief. She denies any other focal symptoms. The patient was admitted here on 10/23/2018 through 10/30/2018 for a COPD exacerbation. She was discharged with prescription for prednisone which she did not fill until 11/12/2018 and took a dose today for her shortness of breath. EMS reports the patient was hypoxic with a oxygen saturation rate of 80% upon arrival to the scene. She was given two albuterol and atrovent treatments and Solu-Medrol 125mg IV. She does refused to take magnesium IV because it makes her face flush. TRAVEL OUTSIDE OF THE [place] IN LAST 30 DAYS: No - Related Data Allergies/Adverse Reactions: codeine Allergy (Verified 02/11/18 15:45) magnesium Adverse Reaction (Mild, Verified 10/29/18 10:00) methylprednisolone sodium succinate [From Solu-Medrol] Adverse Reaction (Verified 02/11/18 15:45) Increase Glucose Past Medical History - General Information source: Patient - Social History Smoking Status: Former Smoker Cigarette use (# per day): No Chew tobacco use (# tins/day): No Smoking Education Provided: No Frequency of alcohol use: None Drug Abuse: None Lives with: Family Family History: CAD, COPD - Asthma and COPD, DM, Hyperlipidemia, Hypertension, Other - CHF - Past Medical History Cardiac Medical History: Reports: Hx Hypercholesterolemia, Hx Hypertension Pulmonary Medical History: Reports: Hx Asthma, Hx Bronchitis, Hx COPD, Hx Pneumonia Endocrine Medical History: Reports: Hx Diabetes Mellitus Type 2 Musculoskeletal Medical History: Reports Hx Arthritis Psychiatric Medical History: Reports: Hx Depression Past Surgical History: Reports: Hx Appendectomy, Hx Hysterectomy, Hx Orthopedic Surgery - left knee repair/right carpal tunnel - Immunizations Hx Diphtheria, Pertussis, Tetanus Vaccination: Yes Hx Pneumococcal Vaccination: 06/23/03 Review of Systems - Review of Systems Constitutional: No symptoms reported EENT: No symptoms reported Cardiovascular: No symptoms reported Respiratory: See HPI, Short of breath Gastrointestinal: No symptoms reported Genitourinary: No symptoms reported Female Genitourinary: No symptoms reported Musculoskeletal: No symptoms reported Skin: No symptoms reported Hematologic/Lymphatic: No symptoms reported Neurological/Psychological: No symptoms reported -: Yes All other systems reviewed and negative Physical Exam - Notes Notes: GENERAL: Alert, interacts well. No acute distress. HEAD: Normocephalic, atraumatic. EYES: Pupils equal, round, and reactive to light. Extraocular movements intact. ENT: Oral mucosa moist, tongue midline. NECK: Full range of motion. Supple. Trachea midline. LUNGS: Expiratory wheezes and rhonchi. Prolonged expiratory phase. Mild retracting. 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 No respiratory distress. HEART: Regular rate and rhythm. No murmurs, gallops, or rubs. ABDOMEN: Soft, obese, non-tender. Non-distended. Bowel sounds present in all 4 quadrants. No guarding, rigidity, or rebound. EXTREMITIES: Moves all 4 extremities spontaneously. No edema, radial and dorsalis pedis pulses 2/4 bilaterally. No cyanosis. NEUROLOGICAL: Alert and oriented x3. Normal speech. PSYCH: Normal affect, normal mood. SKIN: Warm, dry, normal turgor. No rashes or lesions noted. Course - Re-evaluation Re-evalutation: 11/20/18 14:15 Patient is breathing less so much better at this time. She is running O2 saturations of 97 to 98% on room air. She does have prolonged expiratory phase with wheezes which is consistent with her COPD diagnosis. She would probably benefit from wearing CPAP at night when she is sleeping. She feels that using her albuterol nebulizer at home is what caused her to have to come to the hospital on the past 2 occasions. I explained to her that the reason she used the nebulizer was because her breathing was getting progressively worse and that just the albuterol treatment was not enough to turn her around, that it did not cause her to have to come here. She was wondering if the air quality here was better than the air quality where she lives to run her nebulizer. I will add a prescription for Atrovent for her to add to her albuterol treatments, because that is the only thing different that we have done here. - Laboratory Result Diagrams: 11/20/18 11:19 11/20/18 11:19 Laboratory results interpreted by me: 11/20/18 11/20/18 11/20/18 11:19 11:19 12:35 WBC 15.8 H Monocytes % (Manual) 1 L Metamyelocytes % 1 H Abs Lymphs (Manual) 7.6 H Absolute Eos (Manual) 0.8 H Glucose 191 H Urine Blood SMALL H Ur Leukocyte Esterase MODERATE H - Diagnostic Test Radiology reviewed: Image reviewed, Reports reviewed - Chest x-ray shows cardiomegaly without acute cardiopulmonary findings. - EKG Interpretation by Me EKG shows normal: Sinus rhythm, [place], Intervals. abnormal: QRS Complexes - Consider anterior infarct anterior [place], ST-T Waves - T wave abnormalities Rate: Normal - 99 Rhythm: NSR [place]/QRS: Left axis deviation When compared to previous EKG there are: No significant change Discharge - Discharge Clinical Impression: Acute exacerbation of chronic obstructive pulmonary disease (COPD), Acute exacerbation of moderate persistent extrinsic asthma Condition: Stable Disposition: HOME, SELF-CARE Additional Instructions: Add 1 dose of the the Atrovent solution to 1 dose of albuterol and your nebulizer every 4 hours as needed for wheezing and shortness of breath. Start taking the prednisone as prescribed tomorrow. Drink plenty of fluids and get plenty of rest. Try taking the generic version of plain Robitussin to help loosen mucus. Follow-up with your primary care provider Friday for recheck, and to discuss possibly using CPAP when you are sleeping. RETURN TO THE EMERGENCY ROOM IF ANY NEW OR WORSENING SYMPTOMS. Prescriptions: Ipratropium [place] [Atrovent 0.02% Neb 0.5 mg/2.5 ml Ampul] 0.5 mg NEB Q4 PRN #50 vial.neb PRN Reason: Prednisone [Deltasone 10 mg Tablet] 10 mg PO QID #20 tablet Referrals: [facility] [Primary Care Provider] - 11/23/18 Scribe Attestation: 11/20/18 13:00 I personally performed the services described in the documentation, reviewed and edited the documentation which was dictated to the scribe in my presence, and it accurately records my words and actions. I personally performed the services described in the documentation, reviewed and edited the documentation which was dictated to the scribe in my presence, and it accurately records my words and actions.
[2018-11-20] MEDS ORDERED: IPRATROPIUM/ALBUTEROL 0.5-2.5 MG/3 ML AMPUL NEB ONE (12:59)
[2018-11-20 13:00] LABS: APPEARANCE,URINE SLIGHTLY-CLOUDY; BILIRUBIN,URINE NEGATIVE (NEGATIVE); COLOR,URINE YELLOW; GLUCOSE, URINE NEGATIVE (NEGATIVE); KETONES,URINE NEGATIVE (NEGATIVE); LEUKOCYTE ESTERASE,URINE MODERATE (NEGATIVE); NITRITE,URINE NEGATIVE (NEGATIVE); PROTEIN,URINE NEGATIVE (NEGATIVE); URINE SPECIFIC GRAVITY 1.012; UROBILINOGEN,URINE NEGATIVE mg/dL (<2.0)
[2018-11-20 13:04] LABS: ALANINE AMINOTRANSFERASE 37 U/L (9-52); ALBUMIN 4.1 g/dL (3.5-5.0); ALKALINE PHOSPHATASE 65 U/L (38-126); ANION GAP 15 (5-19); ASPARTATE AMINO TRANSFERASE 25 U/L (14-36); BILIRUBIN,DIRECT 0.3 mg/dL (0.0-0.4); BILIRUBIN,TOTAL 0.4 mg/dL (0.2-1.3); BLOOD UREA NITROGEN 13 mg/dL (7-20); CALCIUM 9.1 mg/dL (8.4-10.2); CARBON DIOXIDE 23 mmol/L (22-30); CHLORIDE 104 mmol/L (98-107); CREATINE KINASE 70 U/L (30-135); GLUCOSE 191 mg/dL (75-110); POTASSIUM 4.1 mmol/L (3.6-5.0); SODIUM 141.9 mmol/L (137-145); TOTAL PROTEIN 6.7 g/dL (6.3-8.2)
[2018-11-20 13:16] LABS: CREATINE KINASE MB 1.22 ng/mL (<4.55)
[2018-11-20 13:18] LABS: TROPONIN I < 0.012 ng/mL
[2018-11-20 13:20] LABS: ABSOLUTE LYMPHOCYTES# (MANUAL) 7.6 10^3/uL (0.5-4.7); ABSOLUTE MONOCYTES # (MANUAL) 0.2 10^3/uL (0.1-1.4); ABSOLUTE NEUTROPHILS# (MANUAL) 7.1 10^3/uL (1.7-8.2); BASOPHILS % (MANUAL) 1 % (0-2); EOSINOPHILS % (MANUAL) 5 % (0-6); LYMPHOCYTES % (MANUAL) 45 % (13-45); METAMYELOCYTES % (MANUAL) 1 % (0); MONOCYTES % (MANUAL) 1 % (3-13); SEGMENTED NEUTROPHILS % (MAN) 44 % (42-78); TOTAL CELLS COUNTED 100
[2018-11-20 13:21] LABS: PLATELET COMMENT ADEQUATE; POLYCHROMASIA SLIGHT; SMUDGE CELLS PRESENT
--- NOTE | 2018-11-20 13:25 | RADIOLOGY REPORT (SQ) ---
EXAM DESCRIPTION: CHEST SINGLE VIEW COMPLETED DATE/TIME: 11/20/2018 1:08 pm REASON FOR STUDY: COPD exacerbation COMPARISON: 10/23/2018 EXAM PARAMETERS: NUMBER OF VIEWS: One view. TECHNIQUE: Single frontal radiographic view of the chest acquired. RADIATION DOSE: NA LIMITATIONS: None. FINDINGS: LUNGS AND PLEURA: No opacities, masses or pneumothorax. No pleural effusion. MEDIASTINUM AND HILAR STRUCTURES: No masses. Contour normal. HEART AND VASCULAR STRUCTURES: Cardiomegaly. BONES: No acute findings. HARDWARE: None in the chest. OTHER: No other significant finding. IMPRESSION: Cardiomegaly without acute abnormality of the lungs. TECHNICAL DOCUMENTATION: JOB ID: [id number] [employer]- All Rights Reserved Reading location - IP/workstation name: [email or web address]
[2018-11-20] MEDS ORDERED: PREDNISONE 20 MG TABLET PO ONE (14:17)
--- NOTE | 2018-11-20 19:27 | EKG REPORT ---
SEVERITY:- BORDERLINE ECG - SINUS RHYTHM BORDERLINE LEFT AXIS DEVIATION CONSIDER ANTERIOR INFARCT BORDERLINE T WAVE ABNORMALITIES : Confirmed by: Kathe Honeycutt MD 20-Nov-2018 19:26:41
== END 2018-11-20 16:05 | disposition home or self-care (01) ==
LOC: ER 10:35
DX: J44.1 Chronic obstructive pulmonary disease with (acute) exacerbation (principal); T38.0X6A Underdosing of glucocorticoids and synthetic analogues, initial encounter; Z91.128 Patient's intentional underdosing of medication regimen for other reason; Z91.14 Patient's other noncompliance with medication regimen; J45.41 Moderate persistent asthma with (acute) exacerbation; R94.31 Abnormal electrocardiogram [ECG] [EKG]; R06.02 Shortness of breath; I10 Essential (primary) hypertension; E11.9 Type 2 diabetes mellitus without complications; Z88.5 Allergy status to narcotic agent; Z87.891 Personal history of nicotine dependence; Z87.01 Personal history of pneumonia (recurrent)
CPT/HCPCS: 93005; 94640 ×2; 99285; 96360; 36415; 82553; 82962; 82550; 85025; 80053; 81001; 84484; 71045; 93010; J7512; J7030; J7620

== ENCOUNTER → 2018-12-23 | Outpatient (CLI) | payer MEDICAID ==
--- NOTE | 2018-12-23 15:05 | WOMENS IMAGING REPORT ---
EXAM DESCRIPTION: BILAT SCREENING MAMMO W/CAD COMPLETED DATE/TIME: 12/23/2018 12:11 pm REASON FOR STUDY: Z12.31 ROUTINE BILATERAL SCREENING Z12.31 ENCNTR SCREEN MAMMOGRAM FOR MALIGNANT N EOPLASM OF ANGEL COMPARISON: Multiple since 2007 EXAM PARAMETERS: Standard craniocaudal and mediolateral oblique views of each breast recorded using digital acquisition. Read with the assistance of CAD. .[facility] - Audio Network [employer] Version 9.2 LIMITATIONS: None. FINDINGS: Findings present which are benign by mammographic criteria. No suspicious masses, calcifi cations or architectural distortion. Pertinent benign findings: Benign bilateral breast parenchymal calcifications. Benign mammographic findings may include one or more of the following: Smooth masses, popcorn/rim/co arse calcifications, asymmetries, post-procedure changes, and lesions with long-standing stability. IMPRESSION: BENIGN MAMMOGRAPHIC FINDINGS. BIRADS 2 BREAST DENSITY: b. There are scattered areas of fibroglandular density. BIRAD: ASSESSMENT: 2 BENIGN FINDING(S) RECOMMENDATION: ROUTINE SCREENING COMMENT: The patient has been notified of the results by letter per SA requirements. Additional no tification policies are in place for contacting patient with suspicious or incomplete findings. Quality ID #225: The [employer] recommends an annual screening mammogram for women aged 40 years or over. This facility utilizes a reminder system to ensure that all patients receive reminder letters, and/or direct phone calls for appointments. This includes reminders for routine scr eening mammograms, diagnostic mammograms, or other Breast Imaging Interventions when appropriate. Th is patient will be placed in the appropriate reminder system. TECHNICAL DOCUMENTATION: FINDING NUMBER: (1) ASSESSMENT: (1) JOB ID: [id number] [employer]- All Rights Reserved Reading location - IP/workstation name: [email or web address]-
== END ==
LOC: WI 11:57
PROVIDERS: ATTEND Family Medicine
DX: Z12.31 Encounter for screening mammogram for malignant neoplasm of breast (principal)
CPT/HCPCS: 77067

== ENCOUNTER → 2019-05-17 | Outpatient (CLI) | payer MEDICAID, OTHER ==
[2019-05-17 11:10] LABS: HEMOGLOBIN 12.5 g/dL (12.0-15.5); MEAN CORPUSCULAR HEMOGLOBIN 29.5 pg (27.0-33.4); MEAN CORPUSCULAR HGB CONC 34.6 g/dL (32.0-36.0); MEAN CORPUSCULAR VOLUME 85 fl (80-97); PLATELET COUNT 272 10^3/uL (150-450); RED BLOOD COUNT 4.23 10^6/uL (3.72-5.28); RED CELL DISTRIBUTION WIDTH 14.5 % (11.5-14.0); WHITE BLOOD COUNT 19.8 10^3/uL (4.0-10.5)
[2019-05-17 11:30] LABS: CHOLESTEROL 125.24 mg/dL (0-200); TRIGLYCERIDES 96 mg/dL (<150)
[2019-05-17 11:41] LABS: ABSOLUTE LYMPHOCYTES# (MANUAL) 11.9 10^3/uL (0.5-4.7); ABSOLUTE MONOCYTES # (MANUAL) 0.4 10^3/uL (0.1-1.4); BASOPHILS % (MANUAL) 0 % (0-2); DIRECT LDL 84 mg/dL (<100); EOSINOPHILS % (MANUAL) 9 % (0-6); LYMPHOCYTES % (MANUAL) 56 % (13-45); MONOCYTES % (MANUAL) 2 % (3-13); SEGMENTED NEUTROPHILS % (MAN) 29 % (42-78); TOTAL CELLS COUNTED 100
[2019-05-17 11:42] LABS: SMUDGE CELLS PRESENT
[2019-05-17 11:43] LABS: ANISOCYTOSIS SLIGHT; PLATELET COMMENT ADEQUATE
== END ==
LOC: OD 10:28
DX: Z00.00 Encounter for general adult medical examination without abnormal findings (principal)
CPT/HCPCS: 36415; 80061; 83036; 85025

== ENCOUNTER → 2019-12-28 | Outpatient (CLI) | payer OTHER ==
--- NOTE | 2019-12-28 12:38 | RADIOLOGY REPORT (SQ) ---
EXAM DESCRIPTION: CT CHEST WITH; CT ABD/PELVIS WITH IV ORAL IMAGES COMPLETED DATE/TIME: 12/28/2019 9:56 am REASON FOR STUDY: CLL (C91.10) C91.10 CHRONIC LYMPHOCYTIC LEUK OF B-CELL TYPE NOT ACHIEVE R COMPARISON: CT abdomen pelvis 02/11/2018 CONTRAST TYPE AND DOSE: contrast/concentration: Isovue 350.00 mmol/ml; Total Contrast Delivered: 100 .0 ml; Total Saline Delivered: 72.0 ml RENAL FUNCTION: GFR > 60. TECHNIQUE: CT scan of the chest performed using helical scanning technique with dynamic intravenous contrast injection. Images reviewed with lung, soft tissue and bone windows. Reconstructed coronal a nd sagittal MPR images reviewed. All images stored on PACS. CT scan of the abdomen and pelvis performed with intravenous and with oral contrastusing helical scan shania technique with dynamic intravenous contrast injection. Images reviewed with lung, soft tissue a nd bone windows. Reconstructed coronal and sagittal MPR images reviewed. Delayed images for evaluat ion of the urinary system also acquired and evaluated. All images stored on PACS. All CT scanners at this facility use dose modulation, iterative reconstruction, and/or weight based d osing when appropriate to reduce radiation dose to as low as reasonably achievable (ALARA). [facility]: Dose Right [facility]: CareDose [facility]: Dose Right [facility]: Teradose 4D [facility]: Smart Technologies CT scan of the chest performed using helical scanning technique with dynamic intravenous contrast inj ection. Images reviewed with lung, soft tissue and bone windows. Reconstructed coronal and sagittal MPR and MIP images reviewed. All images stored on PACS. RADIATION DOSE: CT Rad equipment meets quality standard of care and radiation dose reduction techniq ues were employed. CTDIvol: 11.1 - 16.9 mGy. DLP: 2271 mGy-cm. . LIMITATIONS: None. FINDINGS: CHEST: LUNGS AND PLEURA: No opacities, nodules, masses. No pneumothorax. No effusions. HILAR AND MEDIASTINAL STRUCTURES: No identified masses or abnormal nodes. HEART AND VASCULAR STRUCTURES: No aneurysm or dissection. No central pulmonary emboli. No pericardi al effusion. HARDWARE: None. THYROID AND OTHER SOFT TISSUES: No masses. No adenopathy. BONES: No significant finding. OTHER: No other significant finding. ABDOMEN AND PELVIS: LIVER: Normal size. No masses. No dilated ducts. SPLEEN: Normal size. No focal lesions. PANCREAS: No masses. No significant calcifications. No adjacent inflammation or peripancreatic fluid collections. Pancreatic duct not dilated. GALLBLADDER: No identified stones by CT criteria. No inflammatory changes to suggest cholecystitis. ADRENAL GLANDS: No significant masses or asymmetry. RIGHT KIDNEY AND URETER: No solid masses. No significant calcification. No hydronephrosis or hydroure ter. LEFT KIDNEY AND URETER: No solid masses. No significant calcification. No hydronephrosis or hydrouret er. AORTA AND VESSELS: No aneurysm. No dissection. Renal arteries, SMA, celiac without stenosis. RETROPERITONEUM: No retroperitoneal adenopathy, hemorrhage or masses. BOWEL AND PERITONEAL CAVITY: Patient drank oral contrast. No masses or inflammatory changes. No john e fluid or peritoneal masses. APPENDIX: Not identified, surgically absent ABDOMINAL WALL: No masses. No hernias. PELVIS: No mass or free fluid. Normal bladder. Post hysterectomy BONES: No significant or acute findings. OTHER: No other significant finding. IMPRESSION: NORMAL CT OF THE CHEST WITH IV CONTRAST. POST HYSTERECTOMY AND APPENDECTOMY. OTHERWISE, UNREMARKABLE CT OF THE ABDOMEN AND PELVIS WITH ORAL AND INTRAVENOUS CONTRAST. TECHNICAL DOCUMENTATION: JOB ID: [id number] Quality ID # 436: Final reports with documentation of one or more dose reduction techniques (e.g., Au tomated exposure control, adjustment of the mA and/or kV according to patient size, use of iterative reconstruction technique) 2010 [employer]- All Rights Reserved Reading location - IP/workstation name: [email or web address]
== END ==
LOC: RAD 09:23
PROVIDERS: ATTEND Internal Medicine Medical Oncology
DX: C91.10 Chronic lymphocytic leukemia of B-cell type not having achieved remission (principal)
CPT/HCPCS: 71260; 74177; 82565

== ENCOUNTER → 2020-02-01 | Outpatient (CLI) | payer OTHER ==
--- NOTE | 2020-02-01 14:00 | WOMENS IMAGING REPORT ---
EXAM DESCRIPTION: PINK WARRIOR BILATERAL SCREEN IMAGES COMPLETED DATE/TIME: 02/01/2020 12:19 pm REASON FOR STUDY: PINK PINK PINK Z12.31 ENCNTR SCREEN MAMMOGRAM FOR MALIGNANT NEOPLASM OF ANGEL Z12.31 ENCNTR SCREEN MAMMOGRAM FOR MALIGNANT NEOPLASM OF ANGEL COMPARISON: 12/23/2018 and 02/28/2017. EXAM PARAMETERS: Standard craniocaudal and mediolateral oblique views of each breast recorded using digital acquisition. Read with the assistance of CAD. .[facility] - Manager Privacy Version 9.2 LIMITATIONS: None. FINDINGS: Findings present which are benign by mammographic criteria. No suspicious masses, calcifi cations or architectural distortion. Pertinent benign findings: Stable asymmetry and calcifications. Benign mammographic findings may include one or more of the following: Smooth masses, popcorn/rim/co arse calcifications, asymmetries, post-procedure changes, and lesions with long-standing stability. IMPRESSION: BENIGN MAMMOGRAPHIC FINDINGS. BIRADS 2 BREAST DENSITY: b. There are scattered areas of fibroglandular density. BIRAD: ASSESSMENT: 2 BENIGN FINDING(S) RECOMMENDATION: ROUTINE SCREENING COMMENT: The patient has been notified of the results by letter per SA requirements. Additional no tification policies are in place for contacting patient with suspicious or incomplete findings. Quality ID #225: The [employer] recommends an annual screening mammogram for women aged 40 years or over. This facility utilizes a reminder system to ensure that all patients receive reminder letters, and/or direct phone calls for appointments. This includes reminders for routine scr eening mammograms, diagnostic mammograms, or other Breast Imaging Interventions when appropriate. Th is patient will be placed in the appropriate reminder system. TECHNICAL DOCUMENTATION: FINDING NUMBER: (1) ASSESSMENT: (1) JOB ID: [id number] 2010 [employer]- All Rights Reserved Reading location - IP/workstation name: [email or web address]
== END ==
LOC: WI 10:48
PROVIDERS: ATTEND Family Medicine
DX: Z12.31 Encounter for screening mammogram for malignant neoplasm of breast (principal)
CPT/HCPCS: 77067

== ENCOUNTER 2020-06-06 15:20 | Emergency (ER) | payer OTHER ==
[2020-06-06] MEDS ORDERED: ASPIRIN 81 MG TABLET, CHEWABLE PO ONE (15:44)
--- NOTE | 2020-06-06 15:46 | ER Document Report ---
ED Medical Screen (RME) - General Chief Complaint: Chest Pain Stated Complaint: CHEST PAIN Time Seen by Provider: 06/06/20 15:41 Primary Care Provider: MIC GONCALVES MD [Primary Care Provider] - Follow up as needed Notes: HPI: 59-year-old female with history of type 2 diabetes, hypertension, CLL, COPD presenting for intermittent episodes of midsternal chest pain that began yesterday. Feels like a quick squeezing sensation last for several seconds then goes away. No shortness of breath with this. No radiation into the neck back or arms. No prior history of anything similar. Denies abdominal pain nausea v omiting. PHYSICAL EXAMINATION: Lung sounds are clear to auscultation, tachycardic rate and rhythm. Patient does appear to have nonspecific T wave flattening across all leads on EKG I have greeted and performed a rapid initial assessment of this patient. A comprehensive ED assessment and evaluation of the patient, analysis of test results and completion of medical decision making process will be conducted by an additional ED providers. Please note that clinical decision making for this patient was made during the 2019 pandemic of novel coronavirus which caused a significant strain on the healthcare system including at this particular facility. Criteria for admission discharge and level of care decisions as well as treatment decisions have necessarily changed TRAVEL OUTSIDE OF THE [place] IN LAST 30 DAYS: No - Related Data Allergies/Adverse Reactions: codeine Allergy (Verified 06/06/20 15:38) magnesium Adverse Reaction (Mild, Verified 06/06/20 15:38) methylprednisolone sodium succinate [From Solu-Medrol] Adverse Reaction (Verified 06/06/20 15:38) Increase Glucose Home Medications: metformin. lisinopril/hctz. atorvastatin. albuterol. victoza. lanuts Past Medical History - Social History Chew tobacco use (# tins/day): No Frequency of alcohol use: None Drug Abuse: None - Past Medical History Cardiac Medical History: Reports: Hx Hypercholesterolemia, Hx Hypertension Denies: Hx Coronary Artery Disease, Hx Heart Attack Pulmonary Medical History: Reports: Hx Asthma, Hx Bronchitis, Hx COPD, Hx Pneumonia Neurological Medical History: Denies: Hx Cerebrovascular Accident, Hx Seizures Endocrine Medical History: Reports: Hx Diabetes Mellitus Type 2. Denies: Hx Diabetes Mellitus Type 1, Hx Hyperthyroidism, Hx Hypothyroidism Renal/ Medical History: Denies: Hx Peritoneal Dialysis GI Medical History: Denies: Hx Cirrhosis, Hx Hepatitis Musculoskeltal Medical History: Reports Hx Arthritis, Denies Hx Gout Skin Medical History: Denies Hx Eczema, Denies Hx Psoriasis Psychiatric Medical History: Reports: Hx Depression Infectious Medical History: Denies: Hx Hepatitis Past Surgical History: Reports: Hx Appendectomy, Hx Hysterectomy, Hx Orthopedic Surgery - left knee repair/right carpal tunnel. Denies: Hx Pacemaker - Immunizations Hx Diphtheria, Pertussis, Tetanus Vaccination: Yes Physical Exam - Vital signs Vitals: Temp Pulse Resp BP Pulse Ox 98.2 F 115 H 20 151/85 H 96 06/06/20 15:37 06/06/20 15:37 06/06/20 15:37 06/06/20 15:37 06/06/20 15:37 Course - Vital Signs Vital signs: Temp Pulse Resp BP Pulse Ox 98.2 F 115 H 20 151/85 H 96 06/06/20 15:37 06/06/20 15:37 06/06/20 15:37 06/06/20 15:37 06/06/20 15:37 Doctor's Discharge - Discharge Referrals: MIC GONCALVES MD [Primary Care Provider] - Follow up as needed
--- NOTE | 2020-06-06 16:21 | RADIOLOGY REPORT (SQ) ---
EXAM DESCRIPTION: CHEST SINGLE VIEW IMAGES COMPLETED DATE/TIME: 06/06/2020 4:07 pm REASON FOR STUDY: chest pain COMPARISON: 11/20/2018 EXAM PARAMETERS: NUMBER OF VIEWS: One view. TECHNIQUE: Single frontal radiographic view of the chest acquired. RADIATION DOSE: NA LIMITATIONS: None. FINDINGS: LUNGS AND PLEURA: No opacities, masses or pneumothorax. No pleural effusion. MEDIASTINUM AND HILAR STRUCTURES: No masses. Contour normal. HEART AND VASCULAR STRUCTURES: Heart normal in size. Normal vasculature. BONES: No acute findings. HARDWARE: None in the chest. OTHER: No other significant finding. IMPRESSION: NO ACUTE RADIOGRAPHIC FINDING IN THE CHEST. TECHNICAL DOCUMENTATION: JOB ID: [id number] 2010 [employer]- All Rights Reserved Reading location - IP/workstation name: [email or web address]
[2020-06-06 16:39] LABS: ABSOLUTE BASOPHILS # (AUTO) 0.1 10^3/uL (0.0-0.2); ABSOLUTE EOSINOPHILS # (AUTO) 0.9 10^3/uL (0.0-0.6); ABSOLUTE LYMPHOCYTES (AUTO) 5.8 10^3/uL (0.5-4.7); ABSOLUTE MONOCYTES (AUTO) 0.5 10^3/uL (0.1-1.4); BASOPHILS % (AUTO) 0.8 % (0-2); EOSINOPHILS % (AUTO) 5.6 % (0-6); HEMATOCRIT 37.3 % (36.0-47.0); HEMOGLOBIN 12.6 g/dL (12.0-15.5); LYMPHOCYTES % (AUTO) 37.9 % (13-45); MEAN CORPUSCULAR HGB CONC 33.9 g/dL (32.0-36.0); MEAN CORPUSCULAR VOLUME 89 fl (80-97); MONOCYTES % (AUTO) 3.6 % (3-13); PLATELET COUNT 202 10^3/uL (150-450); RED BLOOD COUNT 4.22 10^6/uL (3.72-5.28); RED CELL DISTRIBUTION WIDTH 13.7 % (11.5-14.0); SEGMENTED NEUTROPHILS % (AUTO) 52.1 % (42-78); TOTAL CELLS COUNTED % (AUTO) 100 %; WHITE BLOOD COUNT 15.3 10^3/uL (4.0-10.5)
[2020-06-06 16:45] LABS: INTERNATIONAL RATION (INR) 0.99; PROTHROMBIN TIME 13.3 SEC (11.4-15.4)
[2020-06-06 16:59] LABS: ALBUMIN 4.3 g/dL (3.5-5.0); ALKALINE PHOSPHATASE 83 U/L (38-126); ANION GAP 11 (5-19); ASPARTATE AMINO TRANSFERASE 109 U/L (14-36); BILIRUBIN,DIRECT 0.2 mg/dL (0.0-0.4); BILIRUBIN,TOTAL 0.5 mg/dL (0.2-1.3); BLOOD UREA NITROGEN 16 mg/dL (7-20); CALCIUM 9.1 mg/dL (8.4-10.2); CARBON DIOXIDE 28 mmol/L (22-30); CHLORIDE 95 mmol/L (98-107); GLUCOSE 398 mg/dL (75-110); POTASSIUM 4.3 mmol/L (3.6-5.0); TOTAL PROTEIN 7.3 g/dL (6.3-8.2)
[2020-06-06] MEDS ORDERED: ATORVASTATIN CALCIUM 10 MG TABLET PO ONE (20:59)
[2020-06-06] MEDS ORDERED: METFORMIN HCL 500 MG TABLET PO ONE (20:59)
[2020-06-06] MEDS ORDERED: NORMAL SALINE 1000 ML 1,000 ML IV ONE (21:00)
[2020-06-06] MEDS ORDERED: HYDROCHLOROTHIAZIDE 25 MG TABLET PO ONE (21:00)
[2020-06-06] MEDS ORDERED: LISINOPRIL 10 MG TABLET PO ONE (21:00)
--- NOTE | 2020-06-06 21:50 | ER Document Report ---
ED General - General Chief Complaint: Chest Pain Stated Complaint: CHEST PAIN Time Seen by Provider: 06/06/20 15:41 Primary Care Provider: MARIO ERICKSON MD [ACTIVE STAFF] - Follow up in 1 week MIC GONCALVES MD [Primary Care Provider] - Follow up in 1 week Notes: 59-year-old female with CLL, hypertension, hyperlipidemia, diabetes, COPD presents with several hours of intermittent sharp nonradiating retrosternal carrie st pain that feels like a "twinge" or spasm which has been constant since arrival to the ED but very mild. Patient denies having had any prior episodes. Has no cardiac history. Patient says that she is able to walk up many flights of stairs which she often does because of her claustrophobia which makes her avoid elevators and that she does not have any chest pain when she walks upstairs. Patient denies any back pain, abdominal pain, dizziness, syncope, palpitations, trauma, cough, fever, recent illness, lower extremity edema TRAVEL OUTSIDE OF THE [place] IN LAST 30 DAYS: No - Related Data Allergies/Adverse Reactions: codeine Allergy (Verified 06/06/20 15:38) magnesium Adverse Reaction (Mild, Verified 06/06/20 15:38) methylprednisolone sodium succinate [From Solu-Medrol] Adverse Reaction (Verified 06/06/20 15:38) Increase Glucose Home Medications: metformin. lisinopril/hctz. atorvastatin. albuterol. victoza. lanuts Past Medical History - General Information source: Patient, [facility] Records - Social History Smoking Status: Former Smoker Chew tobacco use (# tins/day): No Frequency of alcohol use: None Drug Abuse: None Family History: CAD, COPD, DM, Hyperlipidemia, Hypertension, Other Patient has homicidal ideation: No - Past Medical History Cardiac Medical History: Reports: Hx Hypercholesterolemia, Hx Hypertension Denies: Hx Coronary Artery Disease, Hx Heart Attack Pulmonary Medical History: Reports: Hx Asthma, Hx Bronchitis, Hx COPD, Hx Pneumonia Neurological Medical History: Denies: Hx Cerebrovascular Accident, Hx Seizures Endocrine Medical History: Reports: Hx Diabetes Mellitus Type 2. Denies: Hx Diabetes Mellitus Type 1, Hx Hyperthyroidism, Hx Hypothyroidism Renal/ Medical History: Denies: Hx Peritoneal Dialysis GI Medical History: Denies: Hx Cirrhosis, Hx Hepatitis Musculoskeletal Medical History: Reports Hx Arthritis, Denies Hx Gout Skin Medical History: Denies Hx Eczema, Denies Hx Psoriasis Psychiatric Medical History: Reports: Hx Depression Infectious Medical History: Denies: Hx Hepatitis Past Surgical History: Reports: Hx Appendectomy, Hx Hysterectomy, Hx Orthopedic Surgery - left knee repair/right carpal tunnel. Denies: Hx Pacemaker - Immunizations Hx Diphtheria, Pertussis, Tetanus Vaccination: Yes Hx Pneumococcal Vaccination: 06/23/03 Review of Systems - Review of Systems Notes: REVIEW OF SYSTEMS: CONSTITUTIONAL : Denies fever, chills, or sweats. EENT: Denies recent cold/sinus symptoms, denies throat pain CARDIOVASCULAR: +chest pain, -MICK RESPIRATORY: Denies cough, denies shortness of breath. GASTROINTESTINAL: Denies abdominal pain, nausea/vomiting. GENITOURINARY: Denies difficulty urinating, painful urination. FEMALE GENITOURINARY: Denies abnormal vaginal bleeding, vaginal discharge. MUSCULOSKELETAL: Denies neck pain, back pain. SKIN: Denies rash or skin lesions. HEMATOLOGIC : Denies easy bruising or bleeding. LYMPHATIC: Denies swollen, enlarged glands. NEUROLOGICAL: Denies headache, denies change in gait. PSYCHIATRIC: Denies anxiety or stress or depression. Physical Exam - Vital signs Vitals: Temp Pulse Resp BP Pulse Ox 98.2 F 115 H 20 151/85 H 96 06/06/20 15:37 06/06/20 15:37 06/06/20 15:37 06/06/20 15:37 06/06/20 15:37 - Notes Notes: PHYSICAL EXAMINATION: GENERAL: Well-appearing, well-nourished middle-aged woman sitting up in stretcher without any signs of discomfort and in no acute distress HEAD: Atraumatic, normocephalic. EYES: Pupils equal round and appropriate constriction, sclera anicteric, conjunctiva are normal. ENT: nares patent, moist mucous membranes. NECK: Normal range of motion, supple without lymphadenopathy LUNGS: Breath sounds clear to auscultation bilaterally and equal. No wheezes r ales or rhonchi. Good air movement, normal respiratory rate and effort, speaking in full sentences. HEART: Borderline tachycardic rate with regular rhythm, no murmurs ABDOMEN: Soft, nontender, no guarding, no masses, no CVAT EXTREMITIES: Normal range of motion, no pitting or edema. No cyanosis. NEUROLOGICAL: Awake, alert, conversing appropriately, moves all extremities spontaneously. PSYCH: Normal mood, normal affect. SKIN: Warm, Dry, normal turgor, no rashes or lesions noted. Course - Re-evaluation Re-evalutation: 06/06/20 22:59 Chest pain presentation without typical features of ACS, will rule out ACS in ED given patient's heart score is 3 for risk factors and age. Patient with active malignancy however so unable to rule out PE with D-dimer and have ordered CTA chest. Patient very mildly tachycardic which could be secondary to PE, but more likely secondary to dehydration from hyperglycemia. No signs of DKA or honk on work-up. Given that patient symptoms are very mild and vital signs have been stable will not give empiric dose of anticoagulation. Patient getting CTA now. Obtain repeat 6-hour troponin as discomfort has been constant in the ED. Patient declined analgesia. No signs of aortic dissection, unlikely pericardial effusion but will observe this on CTA. Will continue to monitor patient pending results of CTA, likely discharge with close PCP and cardiology follow-up outpatient. 06/07/20 01:30 No abnormal findings on CTA chest, obtained a 6-hour repeat troponin which was still negative, repeat EKG also showed no signs of acute ischemia. Patient ready for discharge with outpatient PCP and cardiology follow-up. Discussed all of patient's results with her and her daughter and reported that this did not rule out any underlying dangerous etiology that is extremely important that she follow-up with PCP and cardiology which she was in agreement with. Patient expressed relief and said that her symptoms have improved. Informed patient of mildly abnormal LFTs and gave her a copy of results. Leukocytosis known and secondary to CLL. Gave patient extensive return to ED precautions which she demonstrated understanding of. Gave patient a copy of all results to bring to her primary doctor when she follows up. - Vital Signs Vital signs: Temp Pulse Resp BP Pulse Ox 98.2 F 115 H 23 H 119/75 94 06/06/20 15:37 06/06/20 15:37 06/07/20 00:20 06/07/20 00:20 06/07/20 00:20 - Laboratory Results Result Diagrams: 06/06/20 16:17 06/06/20 16:17 Laboratory Results Interpreted: 06/06/20 06/06/20 16:17 16:17 WBC 15.3 H Absolute Lymphs (auto) 5.8 H Absolute Eos (auto) 0.9 H Sodium 134.4 L Chloride 95 L Est GFR (MDRD) Non-Af 59 L Glucose 398 H AST 109 H ALT 71 H Critical Laboratory Results Reviewed: No Critical Results - Radiology Results Critical Radiology Results Reviewed: No Critical Results - EKG Interpretation by Me Additional EKG results interpreted by me: 06/07/20 01:40 Initial EKG: Sinus tachycardia, no significant ST elevations or depressions, no significant T wave abnormalities Repeat EKG: Sinus rhythm, no significant ST elevations or depressions, no significant T wave abnormalities, no significant change from prior EKG Discharge - Discharge Clinical Impression: Chest pain Qualifiers: Chest pain type: unspecified Qualified Code(s): R07.9 - Chest pain, unspecified Disposition: HOME, SELF-CARE Additional Instructions: Chest Pain of Unclear Cause The exact cause of your chest pain isn't clear. Fortunately, there is no evidence of an immediately dangerous medical condition, but there could still be dangerous causes that you need to discuss with your retail banker and primary doctor. Further testing may be required to find the source of the pain. Most often, we find that this pain is coming from the chest wall -- the muscles or rib joints in the chest. But chest pain can come from the lung and lung lining, the esophagus, the heart valves or heart lining, and even the stomach or gallbladder. Rest. Eat lightly until the pain is gone. We may prescribe medicine for pain and inflammation. You should call the physician immediately if the pain radiates to the shoulder, jaw or arms; if you start to run a fever or develop a cough; or if you develop shortness of breath, or other new or alarming symptoms. Follow-up with your primary doctor and retail banker within 1 week. If you have any worsening pain, difficulty breathing, dizziness, fainting, or any other worsening or alarming symptoms return to the emergency department immediately. Your liver enzymes were slightly abnormal which you should discuss with your primary doctor. Bring the copy of the results that I gave you when you go see your doctor. Referrals: MIC GONCALVES MD [Primary Care Provider] - Follow up in 1 week MARIO ERICKSON MD [ACTIVE STAFF] - Follow up in 1 week
--- NOTE | 2020-06-06 23:20 | RADIOLOGY REPORT (SQ) ---
CLINICAL HISTORY: tachycardia cp active malignancy COMPARISON: None. TECHNIQUE: CT CHEST ANGIOGRAPHY WITHOUT THEN WITH IV CONTRAST on 06/06/2020 8:14 PM RING SORTER. MIPS reconstructions were generated. This exam was performed according to our departmental dose-optimization program, which includes automated exposure control, adjustment of the mA and/or kV according to patient size and/or use of iterative reconstruction technique. MIP images were generated. FINDINGS: Thoracic aorta is normal in course and caliber without aneurysm or dissection. Pulmonary arteries are adequately opacified without acute or chronic filling defects. The heart is mildly enlarged. There is no pericardial effusion. Intrathoracic lymph nodes are not enlarged. There is no pleural effusion, pleural thickening or pneumothorax. Central airways are patent. Lungs are clear with no consolidation, mass or interstitial lung disease. There are no acute abnormalities within the limited images of the upper abdomen. There are no acute osseous findings. No suspicious bony lesions. IMPRESSION: No aortic dissection or aneurysm. No pulmonary embolus. No pneumonia.
--- NOTE | 2020-06-07 02:01 | EKG REPORT ---
SEVERITY:- ABNORMAL ECG - SINUS TACHYCARDIA BORDERLINE LEFT AXIS DEVIATION BORDERLINE R WAVE PROGRESSION, ANTERIOR LEADS BORDERLINE T ABNORMALITIES, DIFFUSE LEADS : Confirmed by: Kathe Honeycutt MD 07-Jun-2020 01:59:43
--- NOTE | 2020-06-07 02:01 | EKG REPORT ---
SEVERITY:- OTHERWISE NORMAL ECG - SINUS RHYTHM BORDERLINE LEFT AXIS DEVIATION : Confirmed by: Kathe Honeycutt MD 07-Jun-2020 01:59:38
[2020-06-07 02:03] VITALS: BP 135/72
== END 2020-06-07 01:55 | disposition home or self-care (01) ==
LOC: ER 15:20
DX: R07.9 Chest pain, unspecified (principal); R79.89 Other specified abnormal findings of blood chemistry; C91.10 Chronic lymphocytic leukemia of B-cell type not having achieved remission; J44.9 Chronic obstructive pulmonary disease, unspecified; E11.9 Type 2 diabetes mellitus without complications; E78.5 Hyperlipidemia, unspecified; I10 Essential (primary) hypertension; E78.00 Pure hypercholesterolemia, unspecified; Z79.899 Other long term (current) drug therapy; Z79.4 Long term (current) use of insulin; Z87.891 Personal history of nicotine dependence; Z88.6 Allergy status to analgesic agent; Z88.5 Allergy status to narcotic agent; Z82.49 Family history of ischemic heart disease and other diseases of the circulatory system
CPT/HCPCS: 93005 ×2; 99285; 96360; 96361; 36415; 85025; 85610; 80053; 84484; 71045; 71275; 93010 ×2; J7030